=== PATIENT | female | born 1955 | race Caucasian/White ===

== ENCOUNTER 2016-09-09 11:52 | Inpatient (IN) | payer OTHER ==
--- NOTE | 2016-09-09 12:05 | PDOC ---
Attending Attestation - Resident Resident Name: DakshaWagner - ED Attending Attestation I have performed the following: I have examined & evaluated the patient, The case was reviewed & discussed with the resident, I agree w/resident's findings & plan, Exceptions are as noted - HPI HPI: 09/09/16 12:04 The patient is a 60-year-old female with a significant past medical history of ulcerative colitis, remote history of anemia (with high MCV and RDW, autoimmune per hematology) who presents to the emergency department with nausea, vomiting and abdominal pain. The abdominal pain is mainly in the bilateral lower quadrants, left greater than right. She reports a recent mild constipation. She denies diarrhea. She reports subjective fever, chills, sweats, myalgia, generalized weakness/fatigue. She recently returned from a trip to [place], where she spent time outdoors. She denies tick exposure or rash. She denies any new medications. She takes sulfasalazine for her ulcerative colitis. She has never been admitted to the hospital for her ulcerative colitis. She has never taken a biological agent. She cannot recall ever having a CAT scan for evaluation of her ulcerative colitis. 09/09/16 16:10 - Physicial Exam PE: 09/09/16 12:04 The patient is well-appearing and in no acute distress Vitals noted - Medical Decision Making 09/09/16 12:04 The patient is well-appearing and in no acute distress Will obtain labs, abdominal imaging with CT 09/09/16 13:38 Chemistries noted Her hypernatremia seems to be hypovolemic Will administer additional normal saline Elevated bilirubin is chronic Lactic acid is not elevated Urinalysis noted, contaminated Will repeat Initial white blood cell count is 0.6, according to the lab We will redraw 09/09/16 13:39 09/09/16 13:51 One blood cell count on second draw is 0.7 Differential is pending I suspect she will be neutropenic Differential pending She now has to SIRS criteria: Heart rate greater than 90, white blood cell count less than 4 We suspect intra-abdominal infection She meets diagnostic criteria for sepsis Will administer broad-spectrum antibiotics using Zosyn and vancomycin Will consult ID Regarding her leukopenia: Differential is pending She is slightly anemic but has a normal platelet count She denies tick exposure and rash Without a transaminitis or thrombocytopenia, I feel that tick borne illness secondary to an a pleasant doses is an unlikely cause of her leukopenia Sulfasalazine can rarely cause leukopenia It is possible that her abdominal symptoms as well as her leukopenia is viral Will consult hematology 09/09/16 15:03 I asked the lab to expedite the differential CT pending 09/09/16 15:53 Manual differential has been entered by the lab I called them to confirm that there were no neutrophils present She is now febrile Source is unknown Tick borne fever is in the differential Will administer a single dose of Doxycycline to cover Anaplasmosis Babesiosis much less likely 09/09/16 16:10 09/09/16 16:[address] Santos, who feels the neutropenia is likely autoimmune He suggests administration of neuopogen now at a dose of 480 SQ once 09/09/16 16:40 Case discussed with infectious disease Sulfasalizine mediated drug fever is a possibility Of note, she has no rash and does not have features of SJS or TEN. She also does not have features of DRESS Clinical impression: Neutropenic fever Possible drug reaction/drug fever Possible Sepsis Case discussed in detail with admitting provider including history, physical exam and ancillary studies. Admitting physician has assumed care for the patient, will follow all pending diagnostics and will complete the evaluation and treatment. 09/09/16 16:58
[2016-09-09] MEDS ORDERED: SODIUM CHLORIDE 1,000 ML IV STA ×2 (12:14→13:38)
[2016-09-09] MEDS ORDERED: ONDANSETRON 4 MG/2 ML VIAL IVPB ONE (12:16)
--- NOTE | 2016-09-09 12:58 | PDOC ---
History of Present Illness <Aneesh Bliss - Last Filed: 09/09/16 16:42> - History of Present Illness Initial Comments: 09/09/16 12:45 Patient is a 60 year old female with a history of well controlled Ulcerative Colitis and anemia who presents with 24 hour history of nausea and vomiting. She reports 6+ episodes of non-bloody, non-bilious vomiting over the last 24 hours. She reports that she hasn't been able to keep any solid food down prompting her visit urgent care earlier today. At urgent care they measured a temp of 101, gave her tylenol and sent her to the ED. In addition to the vomiting, she reports feeling very constipated, bloated as well as lower abdominal discomfort. She reports a bowel movement earlier today with significant straining. She denies any blood in her stool. In regards to her UC , she states that she hasn't had any flairs in over 6 years and has not taken any medication for it in over 6 yeas as well. She has never taken a biologic and has never had a CT scan for her UC. Patient reports a recent trip to [place] but denies any tick exposures. 09/09/16 14:09 09/09/16 14:15 09/09/16 14:57 <Wagner Crooks - Last Filed: 09/09/16 18:25> - General Chief Complaint: Nausea/Vomiting Stated Complaint: NAUSEA VOMITING Time Seen by Provider: 09/09/16 11:55 Past History <Aneesh Bliss - Last Filed: 09/09/16 16:42> - Past Medical History Anemia: Yes GI Disorders: Yes (COLITIS) - Psycho/Social/Smoking Cessation Hx Anxiety: No Suicidal Ideation: No Smoking History: Never smoked Have you smoked in the past 12 months: No Number of Cigarettes Smoked Daily: 0 Information on smoking cessation initiated: No Hx Alcohol Use: No Drug/Substance Use Hx: No Substance Use Type: None <Wagner Crooks - Last Filed: 09/09/16 18:25> - Past Medical History Allergies/Adverse Reactions: Allergies Allergy/AdvReac Type Severity Reaction Status Date / Time No Known Allergies Allergy Verified 09/09/16 13:57 Home Medications: Ambulatory Orders Sulfasalazine [Sulfazine] 4 tab PO DAILY 09/09/16 Review of Systems - Review of Systems Constitutional: Yes: Chills, Fever Respiratory: Yes: Cough. No: Shortness of Breath, Wheezing, Productive cough, Hemoptysis Cardiac (ROS): No: Chest Pain, Syncope, Chest Tightness ABD/GI: Yes: Constipated, Nausea, Vomiting, Abdominal cramping. No: Blood Streaked Bowels, Diarrhea, Rectal Bleeding, Tarry Stools : No: Burning, Dysuria, Discharge Musculoskeletal: No: Muscle Pain, Muscle Weakness Integumentary: No: Pallor, Rash Neurological: No: Headache, Dizziness All Other Systems: Reviewed and Negative <Wagner Crooks - Last Filed: 09/09/16 18:25> *Physical Exam - Vital Signs Last Vital Signs Temp Pulse Resp BP Pulse Ox 99.1 F 102 H 20 129/82 96 09/09/16 11:53 09/09/16 11:53 09/09/16 11:53 09/09/16 13:54 09/09/16 11:53 <Aneesh Bliss - Last Filed: 09/09/16 16:42> - Vital Signs Last Vital Signs Temp Pulse Resp BP Pulse Ox 99.1 F 102 H 20 129/82 96 09/09/16 11:53 09/09/16 11:53 09/09/16 11:53 09/09/16 11:53 09/09/16 11:53 - Physical Exam General Appearance: Yes: Nourished. No: Apparent Distress HEENT: negative: Pale Conjunctivae, Tonsillar Exudate, Tonsillar Erythema, Nasal Congestion, Rhinorrhea, Sinus Tenderness Respiratory/Chest: positive: Lungs Clear, Normal Breath Sounds. negative: Respiratory Distress, Rales, Rhonchi, Wheezing Cardiovascular: positive: Regular Rhythm, Tachycardia. negative: Murmur Gastrointestinal/Abdominal: positive: Normal Bowel Sounds, Soft, Tenderness ( Tenderness to deep palpation in the lower left quadrant. Tenderness to deep palaption in the upper left quadrant.). negative: Distended, Guarding, Rebound Musculoskeletal: negative: CVA Tenderness Extremity: positive: Normal Capillary Refill Integumentary: positive: Normal Color, Dry, Warm Neurologic: positive: Fully Oriented, Alert, Normal Mood/Affect, Normal Response <Wagner Crooks - Last Filed: 09/09/16 18:25> ED Treatment Course - LABORATORY CBC & Chemistry Diagram: 09/09/16 13:35 09/09/16 12:54 - ADDITIONAL ORDERS Additional order review: Laboratory Results 09/09/16 09/09/16 09/09/16 13:35 12:59 12:54 PTT (Actin FS) 29.5 Sodium Potassium Chloride Carbon Dioxide Anion Gap BUN Creatinine Creat Clearance w eGFR Random Glucose Lactic Acid Calcium Total Bilirubin AST ALT Alkaline Phosphatase Creatine Kinase 30 Troponin I < 0.03 L C-Reactive Protein Total Protein Albumin Urine Color Yellow Urine Appearance Clear Urine pH 7.0 Ur Specific [place] 1.020 Urine Protein 3+ H Urine Glucose (UA) Trace Urine Ketones 2+ H Urine Blood Negative Urine Nitrite Positive Urine Bilirubin 2+ H Urine Urobilinogen >=8.0 e.u./dl H Ur Leukocyte Esterase Negative Urine RBC 0-3 Urine WBC 0-3 Ur Epithelial Cells Moderate Urine Bacteria Many Hyaline Casts 3-5 09/09/16 09/09/16 12:54 12:54 PTT (Actin FS) Sodium 127 L Potassium 3.7 Chloride 96 L Carbon Dioxide 21 L Anion Gap 10 BUN 10 Creatinine 0.7 Creat Clearance w eGFR > 60 Random Glucose 131 H Lactic Acid 0.9 Calcium 9.0 Total Bilirubin 2.4 H AST 27 ALT 29 Alkaline Phosphatase 94 H Creatine Kinase Troponin I C-Reactive Protein 7.5 H Total Protein 8.0 Albumin 3.9 Urine Color Urine Appearance Urine pH Ur Specific [place] Urine Protein Urine Glucose (UA) Urine Ketones Urine Blood Urine Nitrite Urine Bilirubin Urine Urobilinogen Ur Leukocyte Esterase Urine RBC Urine WBC Ur Epithelial Cells Urine Bacteria Hyaline Casts 09/09/16 09/09/16 13:35 12:54 RBC 3.09 L Cancelled MCV 95.8 Cancelled MCHC 34.2 Cancelled RDW 12.8 Cancelled MPV 6.4 L Cancelled Neutrophils % Y Cancelled Lymphocytes % 84.0 H Cancelled Monocytes % 16.0 H Cancelled Eosinophils % Cancelled Basophils % Cancelled - RADIOLOGY Radiology Studies Ordered: Category Date Time Status CHEST X-RAY PORTABLE* [RAD] Stat Radiology 09/09/16 13:50 Completed - Medications Given in the ED: ED Medications Discontinued Medications Generic Name Dose Route Start Last Admin Trade Name Freq PRN Reason Stop Dose Admin Acetaminophen 975 mg 09/09/16 16:12 09/09/16 16:17 Tylenol - PO 09/09/16 16:13 975 mg ONCE ONE Administration Sodium Chloride 1,000 mls @ 1,000 mls/hr 09/09/16 12:14 09/09/16 13:00 Normal Saline - IV 09/09/16 13:13 1,000 mls/hr ASDIR STA Administration Sodium Chloride 1,000 mls @ 1,000 mls/hr 09/09/16 13:38 09/09/16 13:54 Normal Saline - IV 09/09/16 14:37 1,000 mls/hr ASDIR STA Administration Vancomycin HCl 1,000 mg/ 250 mls @ 250 mls/hr 09/09/16 13:49 09/09/16 15:05 Dextrose IVPB 09/09/16 14:48 250 mls/hr ONCE ONE Administration Protocol Ibuprofen 600 mg 09/09/16 15:53 09/09/16 16:16 Motrin - PO 09/09/16 15:54 Not Given ONCE ONE Ondansetron HCl 4 mg 09/09/16 12:16 09/09/16 13:00 Zofran Injection IVPB 09/09/16 12:17 4 mg ONCE ONE Administration Piperacillin Sod/Tazobactam Sod 4.5 gm 09/09/16 13:49 09/09/16 14:19 Zosyn 4.5gm Ivpb (Pre-Docked) IVPB 09/09/16 13:50 4.5 gm ONCE ONE Administration <Aneesh Bliss - Last Filed: 09/09/16 16:42> - LABORATORY CBC & Chemistry Diagram: 09/09/16 13:35 09/09/16 12:54 <Wagner Crooks - Last Filed: 09/09/16 18:25> Medical Decision Making - Medical Decision Making 09/09/16 13:06 The patient is a 60 year old female with a history of UC who presents with a 24 hour history of nausea, vomiting, and constipation. Patient is tachycardic on exam and given her reported home temps of over 101 she qualifies satisfies two of the SIRS criteria. We believe it is reasonable to rule out sepsis. It is also possible that she is having a flair of her UC or diverticulitis, however that is less likely given her presenting symptoms of constipation and vomiting. It is most likely that her symptoms are due to a viral illness, however we wish to rule out sepsis, UC flair, and diverticulitis as other possible causes. 09/09/16 14:02 Patient's chemistries were notable for a sodium of 127 leading us to believe that she is experiencing a hypovolemic hyponatremia. We believe that given her abnormal chemistry values, a CT abdomen with contrast is warrented at this time to rule out other abdominal processes. Patient also has an elevated biliruben which is chronic. 09/09/16 14:05 Patient noted to have a WBC count of 0.7 at this time on second blood draw. Patient now meets SIRS criteria with a WBC of 0.7 and tachycardia. Patient's neutrophil count is pending at this time. Given the patient's WBC of 0.7, we will start Vancomycin and Zosyn. Patient is on sulfazalazine which could possibly cause her leukopenia or some viral illness, however the etiology of her leukopenia is unclear at this time. UA was contaminated and will repeat. We will consult ID and Heme given her new leukopenia. 09/09/16 15:54 Patient's diff resulted with 0 Neutrophils. Lab was called to confirm. Doxycyline was added to cover for other tick borne diseases. 09/09/16 17:34 ID was consult and discussed the case. ID believes that the patient's current symptoms are unlikely to be related to an infectious etiology and is most likely due to a sulfazalazine reaction and recommend neutrogen. Heme was consulted and discussed the case. Heme also agrees that an infectious etiology is unlikely and believes that her reaction could be autoimmune. The patient has a history of autoimmune hemolytic anemia and Heme believes that her current neutropenia could be related. They also believe that a sulfazalazine reaction could be possible. Heme recommend giving neutrogen to the patient as well. 09/09/16 18:25 <Wagner Crooks - Last Filed: 09/09/16 18:25> *DC/Admit/Observation/Transfer - Discharge Dispostion Admit: Yes <Aneesh Bliss - Last Filed: 09/09/16 16:42> - Discharge Dispostion Admit: Yes <Wagner Crooks - Last Filed: 09/09/16 18:25> Diagnosis at time of Disposition: Neutropenic fever - Discharge Dispostion Condition at time of disposition: Stable
[2016-09-09 13:22] LABS: URINE APPEARANCE Clear; URINE BILIRUBIN 2+ (NEGATIVE); URINE BLOOD Negative (NEGATIVE); URINE GLUCOSE (UA) Trace (NEGATIVE); URINE KETONE 2+ (NEGATIVE); URINE LEUK ESTERASE Negative (NEGATIVE); URINE NITRITE Positive (NEGATIVE); URINE UROBILINOGEN >=8.0 E.U./dl (0.2-1.0)
[2016-09-09 13:24] LABS: URINE PROTEIN 3+ (NEGATIVE)
[2016-09-09 13:24] LABS: ALBUMIN 3.9 g/dl (3.5-5.0); ALK PHOS 94 U/L (32-92); ANION GAP 10 (8-16); BILIRUBIN,TOTAL 2.4 mg/dl (0.2-1.0); CO2 21 mmol/L (22-28); CREATININE 0.7 mg/dl (0.6-1.3); GLUCOSE,RANDOM 131 mg/dl (74-106); SGOT/AST 27 U/L (10-42); SGPT/ALT 29 U/L (10-40)
[2016-09-09 13:25] LABS: CPK(DFH) 30 IU/L (26-140)
[2016-09-09 13:25] LABS: URINE BACTERIA MANY /hpf (NEGATIVE); URINE COLOR YELLOW; URINE RBC 0-3 /hpf (0-3); URINE WBC 0-3 (3-5)
[2016-09-09 13:45] LABS: MCH 32.8 pg (25.7-33.7); MCHC 34.2 g/dl (32.0-36.0); MEAN CELL VOLUME 95.8 fl (80-96); MEAN PLT VOLUME 6.4 fl (7.5-11.1); PLATELET COUNT 260 K/MM3 (134-434); RDW 12.8 % (11.6-15.6)
[2016-09-09 13:48] LABS: WHITE BLOOD COUNT 0.7 K/mm3 (4.0-10.8)
[2016-09-09] MEDS ORDERED: PIPERACILLIN/TAZOB 4.5 GM/100 ML PRE-DOCKED IVPB ONE (13:49)
[2016-09-09] MEDS ORDERED: VANCOMYCIN 1,000 MG in DEXTROSE 5%-WATER - 250 ML IVPB ONE (13:49)
[2016-09-09] MEDS ORDERED: PIPERACILLIN/TAZOBACTAM 4.5 GM VIAL IVPB ONE (14:01)
[2016-09-09] MEDS ORDERED: VANCOMYCIN 1,000 MG VIAL (RESTRICTED TO ID ONLY) ONE (14:01)
[2016-09-09 14:23] LABS: TROPONIN I (DFP) < 0.03 ng/ml (0.03-0.50)
[2016-09-09 14:27] LABS: C-REACTIVE PROTEIN 7.5 MG/DL (0.00-0.3)
[2016-09-09] MEDS ORDERED: ONDANSETRON 4 MG/2 ML VIAL ONE (14:38)
[2016-09-09 15:38] LABS: PLATELET COMMENT2 RARE GIANT PLTS
[2016-09-09] MEDS ORDERED: IBUPROFEN 600 MG TABLET (FP) PO ONE ×3 (15:53→19:32)
[2016-09-09] MEDS ORDERED: DOXYCYCLINE INJECTION 100 MG in DEXTROSE 5%-WATER - 100 ML IVPB ONE (15:56)
[2016-09-09] MEDS ORDERED: ACETAMINOPHEN 325 MG TABLET (FP) PO ONE (16:12)
[2016-09-09] MEDS ORDERED: ACETAMINOPHEN 325 MG TABLET (FP) ONE (16:14)
[2016-09-09 16:51] LABS: ACTIVATED PTT 29.9 SECONDS (24.0-38.9)
[2016-09-09 16:56] LABS: INR 1.16 (0.82-1.09); PROTHROMBIN TIME (PATIENT) 12.9 SEC (10.2-13.0)
[2016-09-09] MEDS ORDERED: TBO-FILGRASTIM 480 MCG/0.8 ML DISP.SYRIN SQ ONE (16:57)
[2016-09-09] MEDS ORDERED: DOXYCYCLINE HYCLATE 100 MG VIAL ONE (16:59)
[2016-09-09] MEDS ORDERED: ONDANSETRON 4 MG/2 ML VIAL IVPUSH PRN (17:07)
[2016-09-09] MEDS ORDERED: SODIUM CHLORIDE 1,000 ML IV SCH (17:15)
--- NOTE | 2016-09-09 17:51 | PN ---
Progress Note, Physician Chief Complaint: ID 60 year old female long history if ulcerative colitis followed most recently at [place] brought with complaints of fever nausea vomiting chills. Noted to be profoundly neutropenic. Patient says about a month ago she was started on sulfasalazine in escalating dosage. Denies rash mouth soreness SOB Mild abd pain no diarrhea. Only travel to [place] recent no tick bite by recall. No drug or alcohol abuse. - Current Medication List Current Medications: Active Medications Acetaminophen (Tylenol -) 650 mg PO Q4H PRN PRN Reason: FEVER Piperacillin Sod/Tazobactam (Sod 3.375 gm/ Dextrose) 50 mls @ 100 mls/hr IVPB ONCE ONE PRN Reason: Protocol Stop: 09/09/16 22:29 Sodium Chloride (Normal Saline -) 1,000 mls @ 75 mls/hr IV ASDIR [place] Ondansetron HCl (Zofran Injection) 4 mg IVPUSH Q4H PRN PRN Reason: NAUSEA - Objective Vital Signs: Vital Signs Temperature 101.7 F H 09/09/16 16:00 Pulse Rate 102 H 09/09/16 12:14 Respiratory Rate 20 09/09/16 16:00 Blood Pressure 129/82 09/09/16 13:54 O2 Sat by Pulse Oximetry (%) 96 09/09/16 16:00 Constitutional: Yes: Well Nourished, No Distress Eyes: Yes: Conjunctiva Clear HENT: Yes: WNL, Atraumatic, Normocephalic. No: Nasal Congestion, Pharyngeal Erythema, Thrush Neck: Yes: WNL, Supple Cardiovascular: Yes: Regular Rate and Rhythm, S1, S2. No: Murmur Respiratory: Yes: WNL, Regular, CTA Bilaterally Gastrointestinal: Yes: WNL, Normal Bowel Sounds, Soft. No: Tenderness, Tenderness, Epigastrium Edema: No Labs: INR, PTT INR 1.16 (0.82-1.09) 09/09/16 12:54 Problem List - Problems (1) Neutropenic fever Code(s): D70.9 - NEUTROPENIA, UNSPECIFIED R50.81 - FEVER PRESENTING WITH CONDITIONS CLASSIFIED ELSEWHERE (2) Sulfasalazine adverse reaction Code(s): T37.0X5A - ADVERSE EFFECT OF SULFONAMIDES, INITIAL ENCOUNTER (3) Ulcerative colitis Code(s): K51.90 - ULCERATIVE COLITIS, UNSPECIFIED, WITHOUT COMPLICATIONS Assessment/Plan Laboratory Tests 09/09/16 09/09/16 09/09/16 12:54 12:54 12:59 WBC Hgb Hct RDW Lymphocytes % Monocytes % Nucleated RBCs BUN 10 Creatinine 0.7 Creat Clearance w eGFR > 60 Random Glucose 131 H Lactic Acid 0.9 Total Bilirubin 2.4 H AST 27 ALT 29 Alkaline Phosphatase 94 H C-Reactive Protein 7.5 H Ur Leukocyte Esterase Negative Urine RBC 0-3 Urine WBC 0-3 09/09/16 13:35 WBC 0.7 L* Hgb 10.1 L Hct 29.6 L RDW 12.8 Lymphocytes % 84.0 H Monocytes % 16.0 H Nucleated RBCs 1 H BUN Creatinine Creat Clearance w eGFR Random Glucose Lactic Acid Total Bilirubin AST ALT Alkaline Phosphatase C-Reactive Protein Ur Leukocyte Esterase Urine RBC Urine WBC Assessment Neutropenic fever 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 Plan Cultures Neutropenic precautions Cefepime 2grs q 8 H Neupogen 480ug sq now Heme consult [place] [facility]
[2016-09-09 18:59] VITALS: BMI 26.8
--- NOTE | 2016-09-09 20:53 | HP ---
CHIEF COMPLAINT: fever, vomiting PCP: @ [facility] HISTORY OF PRESENT ILLNESS: This is a 60 year old female with a past medical history of ulcerative colitis and hemolytic anemia presented to the ED with a 1-2 day history of fever and vomiting. Initially pt reported constipation but now states she is having LBM. Pt denies chest pain, SOB. Pt staes she was started on sulfasalazine approximately one month ago in escalating dosage. ER course was notable for: (1) WBC 0.7, neutrophil count 0 (2) Sodium 127 (3) CRP 7.5, Lactic Acid 0.9 Recent Travel: [place]-denies known tick exposure-did not really do a lot of outdoor activities PAST MEDICAL HISTORY: Ulcerative colitis hemolytic anemia s/p hospitalization 2010, followed by Dr. Santos PAST SURGICAL HISTORY: pt denies Social History: Smoking: pt denies Alcohol: 1-2 glasses wine/night Drugs: pt denies Family History: mother age 94, UTI/dementia father age 84, OR 2 brothers alive and well no children Allergies No Known Allergies Allergy (Verified 09/09/16 13:57) HOME MEDICATIONS: 3 Medication Instructions Recorded Sulfasalazine [Sulfazine] 4 tab PO DAILY 09/09/16 REVIEW OF SYSTEMS CONSTITUTIONAL: Present: fever, chills Absent: diaphoresis, generalized weakness, malaise, loss of appetite, weight change HEENT: Absent: rhinorrhea, nasal congestion, throat pain, throat swelling, difficulty swallowing, mouth swelling, ear pain, eye pain, visual changes CARDIOVASCULAR: Absent: chest pain, syncope, palpitations, irregular heart rate, lightheadedness , peripheral edema RESPIRATORY: Absent: cough, shortness of breath, dyspnea with exertion, orthopnea, wheezing, stridor, hemoptysis GASTROINTESTINAL: Present: nausea, vomiting, constipation Absent: abdominal pain, abdominal distension, diarrhea, melena, hematochezia GENITOURINARY: Absent: dysuria, frequency, urgency, hesitancy, hematuria, flank pain, genital pain MUSCULOSKELETAL: Absent: myalgia, arthralgia, joint swelling, back pain, neck pain SKIN: Absent: rash, itching, pallor HEMATOLOGIC/IMMUNOLOGIC: Absent: easy bleeding, easy bruising, lymphadenopathy, frequent infections ENDOCRINE: Absent: unexplained weight gain, unexplained weight loss, heat intolerance, cold intolerance NEUROLOGIC: Absent: headache, focal weakness or paresthesias, dizziness, unsteady gait, seizure, mental status changes, bladder or bowel incontinence PSYCHIATRIC: Absent: anxiety, depression, suicidal or homicidal ideation, hallucinations. PHYSICAL EXAMINATION Vital Signs - 24 hr 3 09/09/16 09/09/16 09/09/16 11:53 12:14 13:00 Temperature 99.1 F 99.1 F Pulse Rate 102 H 102 H Respiratory 20 20 Rate Blood Pressure 129/82 129/82 129/82 O2 Sat by Pulse 96 96 Oximetry (%) 3 09/09/16 09/09/16 09/09/16 09/09/16 09/09/16 13:54 16:00 17:33 19:21 19:33 Temperature 101.7 F H 99 F 99.8 F H 104 F H Pulse Rate 78 97 H Respiratory 20 20 19 Rate Blood Pressure 129/82 132/78 130/67 O2 Sat by Pulse 96 98 Oximetry (%) GENERAL: Awake, alert, and fully oriented, in no acute distress. HEAD: Normal with no signs of trauma. EYES: Pupils equal, round and reactive to light, extraocular movements intact, sclera anicteric, conjunctiva clear. No lid lag. EARS, NOSE, THROAT: Ears normal, nares patent, oropharynx clear without exudates. Moist mucous membranes. NECK: Normal range of motion, supple without lymphadenopathy, JVD, or masses. LUNGS: Breath sounds equal, clear to auscultation bilaterally. No wheezes, and no crackles. No accessory muscle use. HEART: Regular rate and rhythm, normal S1 and S2 without murmur, rub or gallop. ABDOMEN: Soft, nontender, not distended, normoactive bowel sounds, no guarding, no rebound, no masses. No hepatomegaly or splenomegaly. MUSCULOSKELETAL: Normal range of motion at all joints. No bony deformities or tenderness. No CVA tenderness. UPPER EXTREMITIES: 2+ pulses, warm, well-perfused. No cyanosis. No clubbing. No peripheral edema. LOWER EXTREMITIES: 2+ pulses, warm, well-perfused. No calf tenderness. No peripheral edema. NEUROLOGICAL: Cranial nerves II-XII intact. Normal speech. Normal gait. PSYCHIATRIC: Cooperative. Good eye contact. Appropriate mood and affect. SKIN: Hot, dry, normal turgor, no rashes or lesions noted, normal capillary refill. Laboratory Results - last 24 hr 3 09/09/16 09/09/1609/09/17 12:54 12:54 12:54 WBC Cancelled Corrected WBC (auto) Cancelled RBC Cancelled Hgb Cancelled Hct Cancelled MCV Cancelled MCHC Cancelled RDW Cancelled Plt Count Cancelled MPV Cancelled Neutrophils % Cancelled Lymphocytes % Cancelled Monocytes % Cancelled Eosinophils % Cancelled Basophils % Cancelled Nucleated RBCs Differential Comment Cancelled Smudge Cells Cancelled Platelet Estimate Cancelled Platelet Comment Cancelled RBC Morphology Cancelled INR 1.16 PTT (Actin FS) 29.9 Sodium 127 L Potassium 3.7 Chloride 96 L Carbon Dioxide 21 L Anion Gap 10 BUN 10 Creatinine 0.7 Creat Clearance w eGFR > 60 Random Glucose 131 H Lactic Acid 0.9 Calcium 9.0 Total Bilirubin 2.4 H AST 27 ALT 29 Alkaline Phosphatase 94 H Creatine Kinase 30 Troponin I < 0.03 L C-Reactive Protein 7.5 H Total Protein 8.0 Albumin 3.9 Urine Color Urine Appearance Urine pH Ur Specific [place] Urine Protein Urine Glucose (UA) Urine Ketones Urine Blood Urine Nitrite Urine Bilirubin Urine Urobilinogen Ur Leukocyte Esterase Urine RBC Urine WBC Ur Epithelial Cells Urine Bacteria Hyaline Casts 3 Urine Color Yellow 09/09/16 12:59 Urine Appearance Clear 09/09/16 12:59 Urine pH 7.0 (4.5-8) 09/09/16 12:59 Ur Specific [place] 1.020 (1.005-1.025) 09/09/16 12:59 Urine Protein 3+ (NEGATIVE) H 09/09/16 12:59 Urine Glucose (UA) Trace (NEGATIVE) 09/09/16 12:59 Urine Ketones 2+ (NEGATIVE) H 09/09/16 12:59 Urine Blood Negative (NEGATIVE) 09/09/16 12:59 Urine Nitrite Positive (NEGATIVE) 09/09/16 12:59 Urine Bilirubin 2+ (NEGATIVE) H 09/09/16 12:59 Ur Leukocyte Esterase Negative (NEGATIVE) 09/09/16 12:59 Urine RBC 0-3 /hpf (0-3) 09/09/16 12:59 Urine WBC 0-3 (3-5) 09/09/16 12:59 Ur Epithelial Cells Moderate /HPF 09/09/16 12:59 Urine Bacteria Many /hpf (NEGATIVE) 09/09/16 12:59 3 09/09/16 09/09/16 13:35 13:35 WBC 0.7 L* Corrected WBC (auto) RBC 3.09 L Hgb 10.1 L Hct 29.6 L MCV 95.8 MCHC 34.2 RDW 12.8 Plt Count 260 MPV 6.4 L Neutrophils % Y Lymphocytes % 84.0 H Monocytes % 16.0 H Eosinophils % Basophils % Nucleated RBCs 1 H Differential Comment Smudge Cells Platelet Estimate Platelet Comment Rare giant plts RBC Morphology INR PTT (Actin FS) 29.5 Sodium Potassium Chloride Carbon Dioxide Anion Gap BUN Creatinine Creat Clearance w eGFR Random Glucose Lactic Acid Calcium Total Bilirubin AST ALT Alkaline Phosphatase Creatine Kinase Troponin I C-Reactive Protein Total Protein Albumin Urine Color Urine Appearance Urine pH Ur Specific [place] Urine Protein Urine Glucose (UA) Urine Ketones Urine Blood Urine Nitrite Urine Bilirubin Urine Urobilinogen Ur Leukocyte Esterase Urine RBC Urine WBC Ur Epithelial Cells Urine Bacteria Hyaline Casts Radiology Results CT/ABDOMEN PELVIS CT WITH CONTR Abdomen / pelvis CT (with intravenous and oral contrast) Clinical information: history of ulcerative colitis; now with left lower quadrant pain Multiplanar imaging was performed utilizing intravenous and oral contrast. There is no definite CT evidence of current colitis. Mild to moderate colitis may not be demonstrable on CT. Evaluation of the ascending colon and cecum is limited due to respiratory motion artifact. In comparison to a previous CT exam of 04/27/2010 note is made of apparent interval resolution of concentric wall thickening involving the length of the transverse colon. No evidence of pneumoperitoneum, free intraperitoneal fluid or bowel obstruction. There is no CT evidence of acute diverticulitis or appendicitis. Interval development of minimal to mild splenomegaly is noted with a 13 cm length. Patent splenic vein. There is probable diffuse fatty infiltration of the liver. The pancreas, gallbladder, adrenal glands and kidneys demonstrate no discrete abnormality. No aortic aneurysm. There is no gross small bowel pathology. No definite lymphadenopathy is seen. There has been interval resolution of a 2.4 cm left ovarian cyst. No definite pelvic pathology is visualized. The visualized osseous structures demonstrate no obvious acute pathology. impression: No definite CT findings of acute pathology are identified. Minimal to mild splenomegaly. Probable diffuse hepatic steatosis. Reported By: Vick Barnes MD 09/09/16 7629 CHEST X-RAY PORTABLE* Fever. Single AP chest x-ray. Shallow inspiration. No evidence of pneumonia, CHF, atelectasis or pleural effusion. The heart is borderline enlarged. Uncoiled thoracic aorta. Intact visualized osseous structures. Impression. No evidence of active pulmonary disease. Reported By: Praneeth Mchugh MD 09/09/16 1412 ECG Sinus rhythm with short MI, vent rate 97, MI 110, QTC 444, No acute ST/T changes ASSESSMENT/PLAN: 60yF with PMH ulcerative colitis and anemia presented to the ED with fever, nausea and vomiting. She is being admitted for neutropenic fever. Neutropenic fever - meets sepsis criteria but no clear source, CT without obvious abdominal pathology - cont cefepime 2g q8h per ID - neupogen as ordered - likely Drug reaction - ID and heme consults Hyponatremia - likely hypovolemic given recent vomiting. - cont IVF - repeat sodium 10pm ulcerative colitis - dc sulfazine, monitor for acute exacerbation. anemia - Hgb 10, cont to monitor - heme consult DVT PPX - heparin 5000u SC BID FEN - NS @ 75cc/hr - repeat BMP 10pm - clear liquid diet as tolerated Dispo: Pt currently requires inpatient management of her emergent condition and expected LOS is greater than 2 midnights. Visit type - Emergency Visit Emergency Visit: Yes ED Registration Date: 09/09/16 Care time: The patient presented to the Emergency Department on the above date and was hospitalized for further evaluation of their emergent condition. - New Patient This patient is new to me today: Yes Date on this admission: 09/09/16 - Critical Care Critical Care patient: No
[2016-09-09] MEDS: ACETAMINOPHEN 325 MG TABLET (FP) PO PRN (21:50)
[2016-09-09] MEDS ORDERED: HEPARIN NA (PORCINE) 5,000 UNITS/ML 1ML VIAL SQ SCH (22:00)
[2016-09-09] MEDS ORDERED: PIPERACILLIN/TAZOB 3.375 GM 3.375 GM in DEXTROSE 5%-WATER - 50 ML IVPB ONE (22:00)
[2016-09-09 22:46] LABS: PH,URINE 5.5 (4.5-8); URINE APPEARANCE Clear; URINE BILIRUBIN Negative (NEGATIVE); URINE BLOOD Trace-lysed (NEGATIVE); URINE COLOR YELLOW; URINE GLUCOSE (UA) Negative (NEGATIVE); URINE KETONE Negative (NEGATIVE); URINE LEUK ESTERASE Negative (NEGATIVE); URINE NITRITE Negative (NEGATIVE); URINE PROTEIN 1+ (NEGATIVE); URINE UROBILINOGEN 2.0 E.U/dl (0.2-1.0)
[2016-09-09 22:57] LABS: URINE BACTERIA FEW /hpf (NEGATIVE); URINE WBC 0-2 (3-5)
[2016-09-09 23:00] LABS: ANION GAP 9 (8-16); CALCIUM 8.1 mg/dl (8.4-10.2); CO2 21 mmol/L (22-28); CREATININE 0.7 mg/dl (0.6-1.3); GLUCOSE,RANDOM 146 mg/dl (74-106)
[2016-09-09] MEDS ORDERED: POTASSIUM CHLORIDE ORAL LIQUID 20 MEQ/15 ML PO ONE (23:28)
--- NOTE | 2016-09-10 01:23 | CONS ---
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 She had not been feeling well for the preceding week noting that she had felt generalized malaise and weak. History is significant for longstanding ulcerative colitis which has been followed by Dr. Hale locally, most recently with a second opinion at [facility] by a intelligence applications there. She had a recent colonoscopy which according to the patient had "multiple polyps", and the decision was made to start the patient on sulfasalazine. She did not have any abdominal pain, cramping, or diarrhea. She has been on sulfasalazine only for about a month; during this time, she has been on an escalating dosage regimen. She went to [place] this past week for a vacation noting only that she felt weak there but had no other complaints. Upon her return, she began to feel ill 2 days ago with several episodes of vomiting associated with chills and fever, which brought her to the emergency room today. Of note, on arrival here, her white count was noted to be 0.7, the hemoglobin was 10.1, and the platelets 260. She had no neutrophils. Her chemistry profile was essentially within normal limits with the exception of a bilaterally of 2.4. She has no shortness of breath, cough, abdominal pain, urinary complaints, rash, or mouth soreness. She lives with her also a teacher, and he noted a fever yesterday to 101 but no other complaints. She has no other history of travel other than to [place]. There is no HIV risk factor, does not drink or use drugs, and essentially the remainder of her history is unremarkable. PHYSICAL EXAMINATION: General: She appeared remarkably well given a temperature of 101.7F. Vital signs: Blood pressure 129/82, respirations 20, O2 saturation 96%. HEENT: Conjunctivae within normal limits. The oropharynx without exudate, thrush, or mucous membrane ulceration. Neck: Supple with no lymphadenopathy. Lungs: Clear to percussion, auscultation. Heart: S1, S2. Regular rhythm without audible murmur. Abdomen: Soft. Nontender. Positive bowel sounds. No distention. No guarding, rebound. No palpable mass. Extremities: No clubbing, cyanosis, or edema. Skin: Revealed a punctate papular rash on her back. LABORATORY: The white count was 0.1 with a hemoglobin 10.1 and platelets of 260, 84% polycytes, 16% monocytes. INR 1.16, BUN 10, creatinine 0.7, bilirubin 2.4. Urinalysis: 0 WBCs, 0 RBCs, many bacteria noted. Chest x-ray with no acute infiltrate. Abdominal CT scan showing minimal to mild splenomegaly. ASSESSMENT: A 60-year-old female with history of ulcerative colitis, presents with febrile, neutropenic findings with profound neutropenia in the absence of severe anemia or thrombocytopenia. She does have an elevated bilirubin, and the possibility of hemolysis is considered. More likely, however, all of her findings included this isolated neutropenia and fever are related to a sulfasalazine reaction which is well described with this drug. She is remarkably well appearing given the profound neutropenia and fever . That leads me to believe we may not be dealing with a bacterial sepsis. Certainly however she needs to be empirically covered with antibacterial treatment. Would suggest cultures of blood and urine, empiric therapy with cefepime 2 g IV every 8 hours, will give her Neupogen 480 mcg subcutaneous as a first dose, have hematology evaluate her, discontinue sulfasalazine!, send a babesiosis smear as well as LDH and reticulocyte count for possible hemolysis. RAMIRO BELLA M.D. [id number]
--- NOTE | 2016-09-10 08:24 | PN ---
Physical Exam: SUBJECTIVE: Patient seen and examined, patient reports feeling much better, denies any nausea or vomiting, pt spiked fever on the overnight tmax 104.0 OBJECTIVE: patient is a 60 year old female with a past medical history of ulcerative colitis and autoimmune hemolytic anemia. Patient was admitted from the emergency department for profound neutropenia and sepsis. PCP: Dr Roberts Heme: Dr Santos GI: [place] Vital Signs Period Temp Pulse Resp BP Sys/Pizarro Pulse Ox Last 24 Hr 98.3 F-104 F 78-97 18-19 105-130/59-67 96-98 GENERAL: The patient is awake, alert, and fully oriented, in no acute distress. HEAD: Normal with no signs of trauma. EYES: PERRL, extraocular movements intact, sclera anicteric, conjunctiva clear. No ptosis. ENT: Ears normal, nares patent, oropharynx clear without exudates, dry mucous membranes. NECK: Trachea midline, full range of motion, supple. LUNGS: Breath sounds equal, clear to auscultation bilaterally, no wheezes, no crackles, no accessory muscle use. HEART: Regular rate and rhythm, S1, S2 without murmur, rub or gallop. ABDOMEN: Soft, nontender, nondistended, normoactive bowel sounds, no guarding, no rebound, no hepatosplenomegaly, no masses. RECTAL: external hemorrhoids. non thrombosed EXTREMITIES: 2+ pulses, warm, well-perfused, no edema. NEUROLOGICAL: Cranial nerves II through XII grossly intact. Normal speech, gait not observed. PSYCH: Normal mood, normal affect. SKIN: Warm, dry, normal turgor, no rashes or lesions noted Laboratory Results - last 24 hr 09/09/16 09/09/16 09/09/16 18:37 22:12 22:15 Sodium 130 L Potassium 3.2 L Chloride 100 Carbon Dioxide 21 L Anion Gap 9 BUN 11 Creatinine 0.7 Random Glucose 146 H Calcium 8.1 L C-Reactive Protein 10.2 H D Urine Color Yellow Urine Appearance Clear Urine pH 5.5 D Ur Specific [place] 1.010 Urine Protein 1+ H D Urine Glucose (UA) Negative Urine Ketones Negative Urine Blood Trace-lysed Urine Nitrite Negative Urine Bilirubin Negative Urine Urobilinogen 2.0 e.u/dl H Ur Leukocyte Esterase Negative Urine RBC 2-3 Urine WBC 0-2 Ur Epithelial Cells Rare Urine Bacteria Few CBC WBC 0.7 K/mm3 (4.0-10.8) L* 09/09/16 13:35 Corrected WBC (auto) Cancelled 09/09/16 12:54 RBC 3.09 M/mm3 (3.60-5.2) L 09/09/16 13:35 Hgb 10.1 GM/dl (10.7-15.3) L 09/09/16 13:35 Hct 29.6 % (32.4-45.2) L 09/09/16 13:35 MCV 95.8 fl (80-96) 09/09/16 13:35 MCHC 34.2 g/dl (32.0-36.0) 09/09/16 13:35 RDW 12.8 % (11.6-15.6) 09/09/16 13:35 Plt Count 260 K/MM3 (134-434) 09/09/16 13:35 MPV 6.4 fl (7.5-11.1) L 09/09/16 13:35 Neutrophils % Y 09/09/16 13:35 Lymphocytes % 84.0 % (8-40) H 09/09/16 13:35 Monocytes % 16.0 % (3.8-10.2) H 09/09/16 13:35 Eosinophils % Cancelled 09/09/16 12:54 Basophils % Cancelled 09/09/16 12:54 Nucleated RBCs 1 % (0-0) H 09/09/16 13:35 Differential Comment Cancelled 09/09/16 12:54 Smudge Cells Cancelled 09/09/16 12:54 Platelet Estimate Cancelled 09/09/16 12:54 Platelet Comment Few large plts 09/09/16 13:35 Platelet Comment Rare giant plts 09/09/16 13:35 RBC Morphology Cancelled 09/09/16 12:54 Active Medications Generic Name Dose Route Start Last Admin Trade Name Freq PRN Reason Stop Dose Admin Acetaminophen 650 mg 09/09/16 17:10 09/09/16 21:50 Tylenol - PO 650 mg Q4H PRN Administration FEVER Cefepime HCl 2 gm 09/09/16 18:00 09/10/16 01:20 Maxipime 2gm Ivpb (Pre-Docked) IVPB 2 gm Q8H-IV SPRING Administration Protocol Heparin Sodium (Porcine) 5,000 unit 09/09/16 22:00 09/09/16 21:49 Heparin - SQ 5,000 unit BID [place] Administration Sodium Chloride 1,000 mls @ 75 mls/hr 09/09/16 17:15 09/09/16 19:52 Normal Saline - IV 75 mls/hr ASDIR [place] Administration Lactobacillus Acidophilus 1 tab 09/10/16 10:00 Bacid - PO DAILY [place] Ondansetron HCl 4 mg 09/09/16 17:07 Zofran Injection IVPUSH Q4H PRN NAUSEA Radiology Results CT/ABDOMEN PELVIS CT WITH CONTR Abdomen / pelvis CT (with intravenous and oral contrast) Clinical information: history of ulcerative colitis; now with left lower quadrant pain Multiplanar imaging was performed utilizing intravenous and oral contrast. There is no definite CT evidence of current colitis. Mild to moderate colitis may not be demonstrable on CT. Evaluation of the ascending colon and cecum is limited due to respiratory motion artifact. In comparison to a previous CT exam of 04/27/2010 note is made of apparent interval resolution of concentric wall thickening involving the length of the transverse colon. No evidence of pneumoperitoneum, free intraperitoneal fluid or bowel obstruction. There is no CT evidence of acute diverticulitis or appendicitis. Interval development of minimal to mild splenomegaly is noted with a 13 cm length. Patent splenic vein. There is probable diffuse fatty infiltration of the liver. The pancreas, gallbladder, adrenal glands and kidneys demonstrate no discrete abnormality. No aortic aneurysm. There is no gross small bowel pathology. No definite lymphadenopathy is seen. There has been interval resolution of a 2.4 cm left ovarian cyst. No definite pelvic pathology is visualized. The visualized osseous structures demonstrate no obvious acute pathology. impression: No definite CT findings of acute pathology are identified. Minimal to mild splenomegaly. Probable diffuse hepatic steatosis. Reported By: Vick Barnes MD 09/09/16 1639 CHEST X-RAY PORTABLE* Fever. Single AP chest x-ray. Shallow inspiration. No evidence of pneumonia, CHF, atelectasis or pleural effusion. The heart is borderline enlarged. Uncoiled thoracic aorta. Intact visualized osseous structures. Impression. No evidence of active pulmonary disease. Reported By: Praneeth Mchugh MD 09/09/16 1412 ECG Sinus rhythm with short ND, vent rate 97, ND 110, QTC 444, No acute ST/T changes ASSESSMENT/PLAN: 1) ID Neutropenic fever - patient meets sepsis critera, however, fever likely secondary to autoimmune disease vs drug reaction (sulfazine), f/u blood and urine culture - continue cefepime 2gm TID-->ID consulted and following ([facility]) neutropenia - wbc 0.7, likely secondary to sulfazine - neupogen given yesterday 09/09/16, close monitoring, pending AM labs hemolytic autoimmune anemia - hgb 10.1 mcv 95.8, close monitoring, pending am labs, type and screen ordered - pt may require iv steroids will defer to upper extremity surgeon, appreciate the input of Dr Fields, pt's private upper extremity surgeon 2) GI ulcerative colitis - d/c sulfazine, continue to monitor for acute exacerbation 3) F/E/N Hyponatremia - likely secondary to hypovolemic, continue IV hydration, pending AM labs neutropenic diet DVT PPX - defer ac due to anemia, pt is ambulatory throughout nurse's station - scd Dispo: Pt currently requires inpatient management of her emergent condition and expected LOS is greater than 2 midnights. Visit type - Emergency Visit Emergency Visit: Yes ED Registration Date: 09/09/16 Care time: The patient presented to the Emergency Department on the above date and was hospitalized for further evaluation of their emergent condition. - New Patient This patient is new to me today: No - Critical Care Critical Care patient: No - Discharge Referral Referred to [facility] No
[2016-09-10 08:56] LABS: ANION GAP 7 (8-16); CALCIUM 8.2 mg/dl (8.4-10.2); CO2 21 mmol/L (22-28); CREATININE 0.6 mg/dl (0.6-1.3); GLUCOSE,RANDOM 106 mg/dl (74-106); LDH 131 U/L (91-180); MAGNESIUM 1.6 mg/dL (1.8-2.4); PHOSPHOROUS 3.2 mg/dl (2.5-4.6)
[2016-09-10] MEDS: RANITIDINE HCL 150 MG TABLET (FP) PO SCH ×2 (09:14→21:27)
[2016-09-10] MEDS: LACTOBACILLUS ACIDOPHILUS 1 EACH TAB (FP) PO SCH (09:14)
[2016-09-10] MEDS: HYDROCORTISONE 2.5% TOPICAL CREAM 30 GM TUBE PR SCH (09:14)
[2016-09-10] MEDS: D5-NS + 20 MEQ KCL - 1,000 ML IV SCH (09:15)
--- NOTE | 2016-09-10 09:21 | PN ---
Progress Note, Physician History of Present Illness: Awake, alert No complaints Temps down Afebrile WBC pending Cultures prelim no growth - Current Medication List Current Medications: Active Medications Acetaminophen (Tylenol -) 650 mg PO Q4H PRN PRN Reason: FEVER Last Admin: 09/09/16 21:50 Dose: 650 mg Cefepime HCl (Maxipime 2gm Ivpb (Pre-Docked)) 2 gm IVPB Q8H-IV SPR[place] PRN Reason: Protocol Last Admin: 09/10/16 01:20 Dose: 2 gm Hydrocortisone (Anusol 2.5% Hc Cream -) 1 applic TN DAILY [place] Last Admin: 09/10/16 09:14 Dose: 1 applic Dextrose/Sodium Chloride (Dextrose 5%-Normal Saline+20 Meq Kcl -) 1,000 mls @ 75 mls/hr IV ASDIR [facility] Last Admin: 09/10/16 09:15 Dose: 75 mls/hr Lactobacillus Acidophilus (Bacid -) 1 tab PO DAILY [facility] Last Admin: 09/10/16 09:14 Dose: 1 tab Ondansetron HCl (Zofran Injection) 4 mg IVPUSH Q4H PRN PRN Reason: NAUSEA Ranitidine HCl (Zantac -) 150 mg PO BID [facility] Last Admin: 09/10/16 09:14 Dose: 150 mg - Objective Vital Signs: Vital Signs Temperature 98.3 F 09/10/16 04:00 Pulse Rate 78 09/10/16 04:00 Respiratory Rate 19 09/10/16 08:02 Blood Pressure 105/62 09/10/16 04:00 O2 Sat by Pulse Oximetry (%) 96 09/10/16 08:02 Constitutional: Yes: No Distress Eyes: Yes: Conjunctiva Clear Cardiovascular: Yes: Regular Rate and Rhythm, S1, S2 Respiratory: Yes: CTA Bilaterally Gastrointestinal: Yes: Normal Bowel Sounds, Soft. No: Tenderness Edema: No Integumentary: No: Rash Labs: CBC, BMP 09/10/16 07:30 INR, PTT INR 1.16 (0.82-1.09) 09/09/16 12:54 Assessment/Plan Febrile neutropenia Possible adverse drug reaction (sulfa) Ulcerative colitis Await cultures, repeat CBC Continue empiric cefepime
[2016-09-10] MEDS ORDERED: MAGNESIUM SULF 50% (8.12 MEQ/2 ML-1 GM VIAL) IVPB ONE (09:30)
[2016-09-10 09:38] LABS: MEAN PLT VOLUME 7.8 fl (7.5-11.1)
[2016-09-10 09:40] LABS: EOSINOPHIL 0.4 % (0-4.5); MCH 33.6 pg (25.7-33.7); MCHC 34.9 g/dl (32.0-36.0); MEAN CELL VOLUME 96.3 fl (80-96); RDW 12.8 % (11.6-15.6); WHITE BLOOD COUNT 0.8 K/mm3 (4.0-10.8)
[2016-09-10 11:03] LABS: PLATELET COUNT 150 K/MM3 (134-434)
--- NOTE | 2016-09-10 11:36 | CONSULT ---
Consult - History of Present Illness History of Present Illness: hx of ulcerative colitis with moderate activity who switched MDs was placed on sulfaalazine with increasing doses . started feeling nausea several days ago AND came to ER .noted to be markedlly neutropenic and admitted .placed on antibiotics and feels better. 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 has been off steroids for several years. - Alcohol/Substance Use Hx Alcohol Use: No - Smoking History Smoking history: Never smoked Have you smoked in the past 12 months: No Aproximately how many cigarettes per day: 0 Home Medications - Allergies Allergies/Adverse Reactions: Allergies Allergy/AdvReac Type Severity Reaction Status Date / Time No Known Allergies Allergy Verified 09/09/16 13:57 - Home Medications Home Medications: Ambulatory Orders Sulfasalazine [Sulfazine] 4 tab PO DAILY 09/09/16 Physical Exam Vital Signs: Vital Signs Temperature 98.3 F 09/10/16 04:00 Pulse Rate 78 09/10/16 04:00 Respiratory Rate 19 09/10/16 08:02 Blood Pressure 105/62 09/10/16 04:00 O2 Sat by Pulse Oximetry (%) 96 09/10/16 08:02 Constitutional: Yes: Well Nourished HENT: Yes: WNL Neck: Yes: WNL, Supple Cardiovascular: Yes: WNL, Regular Rate and Rhythm Respiratory: Yes: WNL Gastrointestinal: Yes: Normal Bowel Sounds, Soft Renal/: Yes: WNL Breast(s): Yes: WNL Musculoskeletal: Yes: WNL Extremities: Yes: WNL Edema: No ...Motor Strength: WNL Psychiatric: Yes: WNL Labs: CBC, BMP 09/10/16 07:30 09/10/16 07:30 Assessment/Plan major problem is neutropenia which most likely a drug reaction to sulfasalazine other possibility is auto immune secondary to UC.less likely.will continue neupogen.will consider steroids depending on course ,smear shows adequate platelets no WBCs rbc are normal, plan gcsf neupogen daily continue antibiotics hold steroids
[2016-09-10] MEDS ORDERED: MAGNESIUM SULF 50% (8.12 MEQ/2 ML-1 GM VIAL) ONE (13:23)
[2016-09-10] MEDS: ACETAMINOPHEN 325 MG TABLET (FP) PO PRN ×2 (14:09→23:40)
--- NOTE | 2016-09-10 14:44 | EKG ---
Test Reason : Blood Pressure : / mmHG Vent. Rate : 097 BPM Atrial Rate : 097 BPM P-R Int : 110 ms QRS Dur : 082 ms QT Int : 350 ms P-R-T Axes : 039 045 055 degrees QTc Int : 444 ms SINUS RHYTHM WITH SHORT KS WHEN COMPARED WITH ECG OF 30-APR-2014 10:08, VENT. RATE HAS INCREASED BY 37 BPM Confirmed by MD MITZY, NADIRA ([id number]) on 09/10/2016 2:43:57 PM Referred By: MARIA A Confirmed By:NADIRA FORRESTER MD
[2016-09-10] MEDS ORDERED: REFRIGERATED ANITBIOTICS ONE (21:38)
[2016-09-10] MEDS: TBO-FILGRASTIM 480 MCG/0.8 ML DISP.SYRIN SQ SCH (21:42)
[2016-09-10] MEDS ORDERED: LOPERAMIDE HCL 2 MG CAPSULE PO PRN (21:58)
[2016-09-10] MEDS ORDERED: LOPERAMIDE HCL 2 MG CAPSULE PO ONE (21:58)
[2016-09-11] MEDS: HYDROCORTISONE 2.5% TOPICAL CREAM 30 GM TUBE PR SCH (09:20)
[2016-09-11] MEDS: LACTOBACILLUS ACIDOPHILUS 1 EACH TAB (FP) PO SCH (09:20)
[2016-09-11] MEDS: RANITIDINE HCL 150 MG TABLET (FP) PO SCH ×2 (09:20→21:45)
[2016-09-11] MEDS: D5-NS + 20 MEQ KCL - 1,000 ML IV SCH (09:21)
--- NOTE | 2016-09-11 09:21 | PN ---
Progress Note, Physician History of Present Illness: C/O loose BMs Remains febrile, leukopenic No rigors No rash Blood c/s no growth - Current Medication List Current Medications: Active Medications Acetaminophen (Tylenol -) 650 mg PO Q4H PRN PRN Reason: FEVER Last Admin: 09/10/16 23:40 Dose: 650 mg Cefepime HCl (Maxipime 2gm Ivpb (Pre-Docked)) 2 gm IVPB Q8H-IV [facility] PRN Reason: Protocol Last Admin: 09/11/16 01:36 Dose: 2 gm Hydrocortisone (Anusol 2.5% Hc Cream -) 1 applic HI DAILY [facility] Last Admin: 09/10/16 09:14 Dose: 1 applic Dextrose/Sodium Chloride (Dextrose 5%-Normal Saline+20 Meq Kcl -) 1,000 mls @ 75 mls/hr IV ASDIR [facility] Last Admin: 09/10/16 09:15 Dose: 75 mls/hr Lactobacillus Acidophilus (Bacid -) 1 tab PO DAILY [facility] Last Admin: 09/10/16 09:14 Dose: 1 tab Loperamide HCl (Imodium -) 2 mg PO Q8H PRN PRN Reason: DIARRHEA Ondansetron HCl (Zofran Injection) 4 mg IVPUSH Q4H PRN PRN Reason: NAUSEA Ranitidine HCl (Zantac -) 150 mg PO BID [facility] Last Admin: 09/10/16 21:27 Dose: 150 mg Tbo-Filgrastim (Granix -) 480 mcg SQ HS [facility] Stop: 09/17/16 21:59 Last Admin: 09/10/16 21:42 Dose: 480 mcg - Objective Vital Signs: Vital Signs Temperature 99.2 F 09/11/16 06:00 Pulse Rate 81 09/11/16 06:00 Respiratory Rate 18 09/11/16 06:00 Blood Pressure 124/72 09/11/16 06:00 O2 Sat by Pulse Oximetry (%) 94 L 09/11/16 06:00 Constitutional: Yes: No Distress Eyes: Yes: Conjunctiva Clear HENT: Yes: Other (no oral lesions) Cardiovascular: Yes: Regular Rate and Rhythm, S1, S2 Respiratory: Yes: CTA Bilaterally Gastrointestinal: Yes: Normal Bowel Sounds, Soft. No: Tenderness Edema: No Integumentary: No: Rash Labs: CBC, BMP 09/10/16 07:30 09/10/16 07:30 INR, PTT INR 1.16 (0.82-1.09) 09/09/16 12:54 Assessment/Plan Febrile neutropenia Possible adverse drug reaction (sulfa) Ulcerative colitis repeat CBC hematology consult appreciated. Neupogen ordered Continue empiric cefepime
[2016-09-11 10:44] LABS: MCH 33.2 pg (25.7-33.7); MCHC 33.8 g/dl (32.0-36.0); MEAN PLT VOLUME 7.6 fl (7.5-11.1); PLATELET COUNT 232 K/MM3 (134-434); RDW 13.5 % (11.6-15.6)
[2016-09-11 10:52] LABS: ALBUMIN 2.9 g/dl (3.5-5.0); ALK PHOS 84 U/L (32-92); ANION GAP 5 (8-16); BILIRUBIN,DIRECT 0.3 mg/dl (0.0-0.2); BILIRUBIN,TOTAL 1.1 mg/dl (0.2-1.0); CALCIUM 8.6 mg/dl (8.4-10.2); CO2 23 mmol/L (22-28); CREATININE 0.6 mg/dl (0.6-1.3); GLUCOSE,RANDOM 120 mg/dl (74-106); SGOT/AST 18 U/L (10-42); SGPT/ALT 45 U/L (10-40); TOT PROT 6.4 g/dl (6.4-8.3)
--- NOTE | 2016-09-11 10:56 | PN ---
Physical Exam: SUBJECTIVE: Patient seen and examined, reports feeling slightly improved, pt does report generalized weakness and nausea. tmax 101.1 on overnight OBJECTIVE:patient is a 60 year old female with a past medical history of ulcerative colitis and autoimmune hemolytic anemia. Patient was admitted from the emergency department for profound neutropenia and sepsis. PCP: Dr Roberts Heme: Dr Santos GI: [facility] Vital Signs Period Temp Pulse Resp BP Sys/Pizarro Pulse Ox Last 24 Hr 99 F-101.1 F 81-91 18-20 117-137/62-79 94-100 GENERAL: The patient is awake, alert, and fully oriented, in no acute distress. HEAD: Normal with no signs of trauma. EYES: PERRL, extraocular movements intact, sclera anicteric, conjunctiva clear. No ptosis. ENT: Ears normal, nares patent, oropharynx clear without exudates, marisol noted to soft palate, no ulcerations noted, dry mucous membranes. NECK: Trachea midline, full range of motion, supple. LUNGS: Breath sounds equal, clear to auscultation bilaterally, no wheezes, no crackles, no accessory muscle use. HEART: Regular rate and rhythm, S1, S2 without murmur, rub or gallop. ABDOMEN: Soft, nontender, nondistended, normoactive bowel sounds, no guarding, no rebound, no hepatosplenomegaly, no masses. RECTAL: external hemorrhoids. non thrombosed EXTREMITIES: 2+ pulses, warm, well-perfused, no edema. NEUROLOGICAL: Cranial nerves II through XII grossly intact. Normal speech, gait not observed. PSYCH: Normal mood, normal affect. SKIN: Warm, dry, normal turgor, no rashes or lesions noted Laboratory Results - last 24 hr 09/10/16 09/10/16 07:30 10:00 WBC 0.8 L* RBC 2.83 L Hgb 9.5 L Hct 27.2 L MCV 96.3 H MCHC 34.9 RDW 12.8 Plt Count 150 D MPV 7.8 D Neutrophils % 2.0 L Lymphocytes % 91.1 H Monocytes % 6.5 Eosinophils % 0.4 Basophils % 0.0 Retic Count 2.69 H Blood Type O POSITIVE Antibody Screen Negative CMP Sodium 133 mmol/L (136-145) L 09/11/16 10:20 Potassium 4.5 mmol/L (3.5-5.1) 09/11/16 10:20 Chloride 105 mmol/L (98-107) 09/11/16 10:20 Carbon Dioxide 23 mmol/L (22-28) 09/11/16 10:20 Anion Gap 5 (8-16) L 09/11/16 10:20 BUN 8 mg/dl (7-18) D 09/11/16 10:20 Creatinine 0.6 mg/dl (0.6-1.3) 09/11/16 10:20 Creat Clearance w eGFR > 60 (>60) 09/09/16 12:54 Random Glucose 120 mg/dl (74-106) H 09/11/16 10:20 Lactic Acid 0.9 mmol/L (0.4-2.0) 09/09/16 12:54 Calcium 8.6 mg/dl (8.4-10.2) 09/11/16 10:20 Phosphorus 3.2 mg/dl (2.5-4.6) 09/10/16 07:30 Magnesium 1.6 mg/dL (1.8-2.4) L 09/10/16 07:30 Total Bilirubin 1.1 mg/dl (0.2-1.0) H D 09/11/16 10:20 Direct Bilirubin 0.3 mg/dl (0.0-0.2) H 09/11/16 10:20 AST 18 U/L (10-42) D 09/11/16 10:20 ALT 45 U/L (10-40) H D 09/11/16 10:20 Alkaline Phosphatase 84 U/L (32-92) 09/11/16 10:20 LD Total 131 U/L (91-180) 09/10/16 07:30 Creatine Kinase 30 IU/L (26-140) 09/09/16 12:54 Troponin I < 0.03 ng/ml (0.03-0.50) L 09/09/16 12:54 C-Reactive Protein 10.2 MG/DL (0.00-0.3) H D 09/09/16 18:37 Total Protein 6.4 g/dl (6.4-8.3) 09/11/16 10:20 Albumin 2.9 g/dl (3.5-5.0) L D 09/11/16 10:20 Active Medications Generic Name Dose Route Start Last Admin Trade Name Freq PRN Reason Stop Dose Admin Acetaminophen 650 mg 09/09/16 17:10 09/10/16 23:40 Tylenol - PO 650 mg Q4H PRN Administration FEVER Cefepime HCl 2 gm 09/09/16 18:00 09/11/16 09:20 Maxipime 2gm Ivpb (Pre-Docked) IVPB 2 gm Q8H-IV [facility] Administration Protocol Hydrocortisone 1 applic 09/10/16 10:00 09/11/16 09:20 Anusol 2.5% Hc Cream - [place] 1 applic DAILY [facility] Administration Dextrose/Sodium Chloride 1,000 mls @ 75 mls/hr 09/10/16 08:30 09/11/16 09:21 Dextrose 5%-Normal Saline+20 Meq Kcl - IV 75 mls/hr ASDIR [facility] Administration Lactobacillus Acidophilus 1 tab 09/10/16 10:00 09/11/16 09:20 Bacid - PO 1 tab DAILY [facility] Administration Loperamide HCl 2 mg 09/10/16 21:58 Imodium - PO Q8H PRN DIARRHEA Ondansetron HCl 4 mg 09/09/16 17:07 Zofran Injection IVPUSH Q4H PRN NAUSEA Ranitidine HCl 150 mg 09/10/16 10:00 09/11/16 09:20 Zantac - PO 150 mg BID [facility] Administration Tbo-Filgrastim 480 mcg 09/10/16 22:00 09/10/16 21:42 Granix - SQ 09/17/16 21:59 480 mcg HS [facility] Administration Microbiology 09/09/16 12:39 Blood - Peripheral Venous Blood Culture - Preliminary NO GROWTH OBTAINED AFTER 48 HOURS, INCUBATION TO CONTINUE FOR 3 DAYS. 09/09/16 12:39 Blood - Peripheral Venous Blood Culture - Preliminary NO GROWTH OBTAINED AFTER 48 HOURS, INCUBATION TO CONTINUE FOR 3 DAYS. 09/09/16 22:15 Urine - Urine Clean Catch Urine Culture - Final NO GROWTH OBTAINED 09/10/16 22:40 Stool Clostridium difficile Antigen (CARLA) - Final, negative 09/10/16 22:40 Stool Clostridium difficile Toxin Assay - Final, negative 09/10/16 10:00 Blood - Peripheral Venous Blood Parasites Smear (CARLA) - Final , no parasites Radiology Results CT/ABDOMEN PELVIS CT WITH CONTR Abdomen / pelvis CT (with intravenous and oral contrast) Clinical information: history of ulcerative colitis; now with left lower quadrant pain Multiplanar imaging was performed utilizing intravenous and oral contrast. There is no definite CT evidence of current colitis. Mild to moderate colitis may not be demonstrable on CT. Evaluation of the ascending colon and cecum is limited due to respiratory motion artifact. In comparison to a previous CT exam of 04/27/2010 note is made of apparent interval resolution of concentric wall thickening involving the length of the transverse colon. No evidence of pneumoperitoneum, free intraperitoneal fluid or bowel obstruction. There is no CT evidence of acute diverticulitis or appendicitis. Interval development of minimal to mild splenomegaly is noted with a 13 cm length. Patent splenic vein. There is probable diffuse fatty infiltration of the liver. The pancreas, gallbladder, adrenal glands and kidneys demonstrate no discrete abnormality. No aortic aneurysm. There is no gross small bowel pathology. No definite lymphadenopathy is seen. There has been interval resolution of a 2.4 cm left ovarian cyst. No definite pelvic pathology is visualized. The visualized osseous structures demonstrate no obvious acute pathology. impression: No definite CT findings of acute pathology are identified. Minimal to mild splenomegaly. Probable diffuse hepatic steatosis. Reported By: Vick Barnes MD 09/09/16 1639 CHEST X-RAY PORTABLE* Fever. Single AP chest x-ray. Shallow inspiration. No evidence of pneumonia, CHF, atelectasis or pleural effusion. The heart is borderline enlarged. Uncoiled thoracic aorta. Intact visualized osseous structures. Impression. No evidence of active pulmonary disease. Reported By: Praneeth Mchugh MD 09/09/16 1412 ECG Sinus rhythm with short NH, vent rate 97, NH 110, QTC 444, No acute ST/T changes ASSESSMENT/PLAN: 1) ID Neutropenic fever - tmax 101.1, fever likely secondary to autoimmune disease vs drug reaction ( sulfazine), blood and urine culture NTD - continue cefepime 2gm TID-->ID consulted and following (Nilesh/Bradford) neutropenia - wbc 0.7, likely secondary to sulfazine - neupogen given yesterday 09/09/16, close monitoring, pending AM labs hemolytic autoimmune anemia - hgb 9.5 mcv 96.3, close monitoring - hold IV steroids as per finance lecturer, Dr Fields consulted and following, 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 Visit type - Emergency Visit Emergency Visit: Yes ED Registration Date: 09/09/16 Care time: The patient presented to the Emergency Department on the above date and was hospitalized for further evaluation of their emergent condition. - New Patient This patient is new to me today: No - Critical Care Critical Care patient: No - Discharge Referral Referred to [facility] Med P.C.: No
[2016-09-11 11:09] LABS: WHITE BLOOD COUNT 0.8 K/mm3 (4.0-10.8)
[2016-09-11 16:24] LABS: PARV B19 IGG 6.5 index (0.0-0.8); PARV B19 IGM 0.3 index (0.0-0.8)
[2016-09-11] MEDS: NYSTATIN 500,000 UNITS/5 ML SUSPENSION PO SCH ×2 (17:31→23:50)
[2016-09-11 20:06] LABS: PLATELET ESTIMATE ADEQUATE (NORMAL)
[2016-09-11] MEDS: TBO-FILGRASTIM 480 MCG/0.8 ML DISP.SYRIN SQ SCH (22:03)
[2016-09-12] MEDS: NYSTATIN 500,000 UNITS/5 ML SUSPENSION PO SCH ×3 (06:05→17:06)
[2016-09-12 08:12] LABS: MCHC 34.1 g/dl (32.0-36.0); MEAN CELL VOLUME 96.8 fl (80-96); MEAN PLT VOLUME 7.9 fl (7.5-11.1); RDW 13.5 % (11.6-15.6)
--- NOTE | 2016-09-12 08:18 | PN ---
Physical Exam: SUBJECTIVE: Patient seen and examined, patient reports feeling better, tolerating meals, low grade temp noted, tmax 100.2 OBJECTIVE:patient is a 60 year old female with a past medical history of ulcerative colitis and autoimmune hemolytic anemia. Patient was admitted from the emergency department for profound neutropenia and sepsis. PCP: Dr Roberts Heme: Dr Santos GI: [facility] Vital Signs Period Temp Pulse Resp BP Sys/Pizarro Pulse Ox Last 24 Hr 98.2 F-100.2 F 81-85 16-20 126-141/70-80 93-95 GENERAL: The patient is awake, alert, and fully oriented, in no acute distress. HEAD: Normal with no signs of trauma. EYES: PERRL, extraocular movements intact, sclera anicteric, conjunctiva clear. No ptosis. ENT: Ears normal, nares patent, oropharynx clear without exudates, marisol noted to soft palate, no ulcerations noted, moist mucous membranes. NECK: Trachea midline, full range of motion, supple. LUNGS: Breath sounds equal, clear to auscultation bilaterally, no wheezes, no crackles, no accessory muscle use. HEART: Regular rate and rhythm, S1, S2 without murmur, rub or gallop. ABDOMEN: Soft, nontender, nondistended, normoactive bowel sounds, no guarding, no rebound, no hepatosplenomegaly, no masses. RECTAL: external hemorrhoids. non thrombosed EXTREMITIES: 2+ pulses, warm, well-perfused, no edema. NEUROLOGICAL: Cranial nerves II through XII grossly intact. Normal speech, gait not observed. PSYCH: Normal mood, normal affect. SKIN: Warm, dry, normal turgor, no rashes or lesions noted Laboratory Results - last 24 hr CBC WBC 1.0 K/mm3 (4.0-10.8) L* 09/12/16 07:50 Corrected WBC (auto) Cancelled 09/09/16 12:54 RBC 2.64 M/mm3 (3.60-5.2) L 09/12/16 07:50 Hgb 8.7 GM/dl (10.7-15.3) L D 09/12/16 07:50 Hct 25.5 % (32.4-45.2) L 09/12/16 07:50 MCV 96.8 fl (80-96) H 09/12/16 07:50 MCHC 34.1 g/dl (32.0-36.0) 09/12/16 07:50 RDW 13.5 % (11.6-15.6) 09/12/16 07:50 Plt Count 226 K/MM3 (134-434) 09/12/16 07:50 MPV 7.9 fl (7.5-11.1) 09/12/16 07:50 Neutrophils % 3.0 % (42.8-82.8) L 09/12/16 07:50 Lymphocytes % 97.0 % (8-40) H 09/12/16 07:50 Monocytes % 6.5 % (3.8-10.2) 09/10/16 07:30 Eosinophils % 0.4 % (0-4.5) 09/10/16 07:30 Basophils % 0.0 % (0-2.0) 09/10/16 07:30 Nucleated RBCs 1 % (0-0) H 09/09/16 13:35 Differential Comment Few large plts 09/11/16 10:20 Smudge Cells Cancelled 09/09/16 12:54 Platelet Estimate Adequate (NORMAL) 09/12/16 07:50 Platelet Comment Marked plt clumping 09/12/16 07:50 Platelet Comment Rare giant plts 09/09/16 13:35 RBC Morphology Cancelled 09/09/16 12:54 Retic Count 2.69 % (0.5-1.5) H 09/10/16 07:30 CMP Sodium 129 mmol/L (136-145) L 09/12/16 07:50 Potassium 3.9 mmol/L (3.5-5.1) 09/12/16 07:50 Chloride 105 mmol/L (98-107) 09/12/16 07:50 Carbon Dioxide 22 mmol/L (22-28) 09/12/16 07:50 Anion Gap 2 (8-16) L 09/12/16 07:50 BUN 6 mg/dl (7-18) L D 09/12/16 07:50 Creatinine 0.5 mg/dl (0.6-1.3) L 09/12/16 07:50 Creat Clearance w eGFR > 60 (>60) 09/12/16 07:50 Random Glucose 106 mg/dl (74-106) 09/12/16 07:50 Lactic Acid 0.9 mmol/L (0.4-2.0) 09/09/16 12:54 Calcium 8.0 mg/dl (8.4-10.2) L 09/12/16 07:50 Phosphorus 3.2 mg/dl (2.5-4.6) 09/10/16 07:30 Magnesium 1.7 mg/dL (1.8-2.4) L 09/12/16 07:50 Total Bilirubin 0.6 mg/dl (0.2-1.0) D 09/12/16 07:50 Direct Bilirubin 0.3 mg/dl (0.0-0.2) H 09/11/16 10:20 AST 16 U/L (10-42) 09/12/16 07:50 ALT 31 U/L (10-40) D 09/12/16 07:50 Alkaline Phosphatase 75 U/L (32-92) 09/12/16 07:50 LD Total 131 U/L (91-180) 09/10/16 07:30 Creatine Kinase 30 IU/L (26-140) 09/09/16 12:54 Troponin I < 0.03 ng/ml (0.03-0.50) L 09/09/16 12:54 C-Reactive Protein 10.2 MG/DL (0.00-0.3) H D 09/09/16 18:37 Total Protein 5.9 g/dl (6.4-8.3) L 09/12/16 07:50 Albumin 2.6 g/dl (3.5-5.0) L 09/12/16 07:50 Active Medications Generic Name Dose Route Start Last Admin Trade Name Freq PRN Reason Stop Dose Admin Acetaminophen 650 mg 09/09/16 17:10 09/10/16 23:40 Tylenol - PO 650 mg Q4H PRN Administration FEVER Cefepime HCl 2 gm 09/09/16 18:00 09/12/16 02:11 Maxipime 2gm Ivpb (Pre-Docked) IVPB 2 gm Q8H-IV [facility] Administration Protocol Hydrocortisone 1 applic 09/10/16 10:00 09/11/16 09:20 Anusol 2.5% Hc Cream - CT 1 applic DAILY [facility] Administration Dextrose/Sodium Chloride 1,000 mls @ 75 mls/hr 09/10/16 08:30 09/11/16 09:21 Dextrose 5%-Normal Saline+20 Meq Kcl - IV 75 mls/hr ASDIR [facility] Administration Lactobacillus Acidophilus 1 tab 09/10/16 10:00 09/11/16 09:20 Bacid - PO 1 tab DAILY [facility] Administration Loperamide HCl 2 mg 09/10/16 21:58 Imodium - PO Q8H PRN DIARRHEA Nystatin 500,000 units 09/11/16 18:00 09/12/16 06:05 Nystatin Oral Suspension - PO 500,000 units Q6HPO [facility] Administration Ondansetron HCl 4 mg 09/09/16 17:07 Zofran Injection IVPUSH Q4H PRN NAUSEA Ranitidine HCl 150 mg 09/10/16 10:00 09/11/16 21:45 Zantac - PO 150 mg BID [facility] Administration Tbo-Filgrastim 480 mcg 09/10/16 22:00 09/11/16 22:03 Granix - SQ 09/17/16 21:59 480 mcg HS [facility] Administration Microbiology 09/09/16 12:39 Blood - Peripheral Venous Blood Culture - Preliminary NO GROWTH OBTAINED AFTER 72 HOURS, INCUBATION TO CONTINUE FOR 2 DAYS. 09/09/16 12:39 Blood - Peripheral Venous Blood Culture - Preliminary NO GROWTH OBTAINED AFTER 72 HOURS, INCUBATION TO CONTINUE FOR 2 DAYS. 09/09/16 22:15 Urine - Urine Clean Catch Urine Culture - Final NO GROWTH OBTAINED 09/10/16 22:40 Stool Clostridium difficile Antigen (CARLA) - Final, negative 09/10/16 22:40 Stool Clostridium difficile Toxin Assay - Final, negative 09/10/16 10:00 Blood - Peripheral Venous Blood Parasites Smear (CARLA) - Final , negative ASSESSMENT/PLAN: Radiology Results CT/ABDOMEN PELVIS CT WITH CONTR Abdomen / pelvis CT (with intravenous and oral contrast) impression: No definite CT findings of acute pathology are identified. Minimal to mild splenomegaly. Probable diffuse hepatic steatosis. Reported By: Vick Barnes MD 09/09/16 2039 CHEST X-RAY PORTABLE* Fever. Single AP chest x-ray. Shallow inspiration. No evidence of pneumonia, CHF, atelectasis or pleural effusion. The heart is borderline enlarged. Uncoiled thoracic aorta. Intact visualized osseous structures. Impression. No evidence of active pulmonary disease. 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 Visit type - Emergency Visit Emergency Visit: Yes ED Registration Date: 09/09/16 Care time: The patient presented to the Emergency Department on the above date and was hospitalized for further evaluation of their emergent condition. - New Patient This patient is new to me today: No - Critical Care Critical Care patient: No - Discharge Referral Referred to [facility] Med P.C.: No
[2016-09-12 08:26] LABS: ALBUMIN 2.6 g/dl (3.5-5.0); ALK PHOS 75 U/L (32-92); ANION GAP 2 (8-16); BILIRUBIN,TOTAL 0.6 mg/dl (0.2-1.0); CO2 22 mmol/L (22-28); CREATININE 0.5 mg/dl (0.6-1.3); GLUCOSE,RANDOM 106 mg/dl (74-106); MAGNESIUM 1.7 mg/dL (1.8-2.4); SGOT/AST 16 U/L (10-42); SGPT/ALT 31 U/L (10-40); TOT PROT 5.9 g/dl (6.4-8.3)
[2016-09-12 10:04] LABS: PLATELET COUNT 226 K/MM3 (134-434)
[2016-09-12 10:12] LABS: INR 1.16 (0.82-1.09); PROTHROMBIN TIME (PATIENT) 12.9 SEC (10.2-13.0)
[2016-09-12 10:50] LABS: PLATELET ESTIMATE ADEQUATE (NORMAL)
[2016-09-12] MEDS: LACTOBACILLUS ACIDOPHILUS 1 EACH TAB (FP) PO SCH (10:52)
[2016-09-12] MEDS: RANITIDINE HCL 150 MG TABLET (FP) PO SCH ×2 (10:52→21:28)
[2016-09-12] MEDS: D5-NS + 20 MEQ KCL - 1,000 ML IV SCH (10:52)
[2016-09-12] MEDS: HYDROCORTISONE 2.5% TOPICAL CREAM 30 GM TUBE PR SCH (10:53)
--- NOTE | 2016-09-12 11:14 | PN ---
Progress Note, Physician Chief Complaint: Awake, alert No complaints No c/o fever/ chills Low grade temp 100.2 WBC 1.0 Cultures no growth - Current Medication List Current Medications: Active Medications Acetaminophen (Tylenol -) 650 mg PO Q4H PRN PRN Reason: FEVER Last Admin: 09/10/16 23:40 Dose: 650 mg Cefepime HCl (Maxipime 2gm Ivpb (Pre-Docked)) 2 gm IVPB Q8H-IV [facility] PRN Reason: Protocol Last Admin: 09/12/16 10:51 Dose: 2 gm Hydrocortisone (Anusol 2.5% Hc Cream -) 1 applic [place] DAILY [facility] Last Admin: 09/12/16 10:53 Dose: 1 applic Lactobacillus Acidophilus (Bacid -) 1 tab PO DAILY [facility] Last Admin: 09/12/16 10:52 Dose: 1 tab Loperamide HCl (Imodium -) 2 mg PO Q8H PRN PRN Reason: DIARRHEA Nystatin (Nystatin Oral Suspension -) 500,000 units PO Q6HPO [facility] Last Admin: 09/12/16 06:05 Dose: 500,000 units Ondansetron HCl (Zofran Injection) 4 mg IVPUSH Q4H PRN PRN Reason: NAUSEA Ranitidine HCl (Zantac -) 150 mg PO BID [facility] Last Admin: 09/12/16 10:52 Dose: 150 mg Tbo-Filgrastim (Granix -) 480 mcg SQ HS [facility] Stop: 09/17/16 21:59 Last Admin: 09/11/16 22:03 Dose: 480 mcg - Objective Vital Signs: Vital Signs Temperature 98.7 F 09/12/16 10:00 Pulse Rate 77 09/12/16 10:00 Respiratory Rate 18 09/12/16 10:00 Blood Pressure 137/86 09/12/16 10:00 O2 Sat by Pulse Oximetry (%) 98 09/12/16 10:00 Constitutional: Yes: No Distress Eyes: Yes: Conjunctiva Clear Cardiovascular: Yes: Regular Rate and Rhythm, S1 Respiratory: Yes: CTA Bilaterally Gastrointestinal: Yes: Normal Bowel Sounds, Soft. No: Tenderness Edema: No Labs: CBC, BMP 09/12/16 07:50 09/12/16 07:50 INR, PTT INR 1.16 (0.82-1.09) 09/12/16 Unknown Assessment/Plan Febrile neutropenia resolving Possible adverse drug reaction (sulfa) Ulcerative colitis Continue neupogen, empiric cefepime
[2016-09-12] MEDS ORDERED: MAGNESIUM SULF 50% (8.12 MEQ/2 ML-1 GM VIAL) IVPB ONE (12:10)
[2016-09-12] MEDS: ACETAMINOPHEN 325 MG TABLET (FP) PO PRN (17:05)
--- NOTE | 2016-09-12 20:12 | PN ---
Progress Note (short form) - Note Progress Note: 5P Reports temp to 100.9 assoc w chills w/i past hour. Feels better w tylenol given Denies localizing infxs sxs PE NAD, non-toxic HEENT - mild thrush? on tongue lungs - cta cvs - reg S1S2 abd - soft, nt ext - no edema skin - no rash Imp - UC, febrile neutropenia, bkd recent sulfasalazine instituted appreciate ID mgt cont abx, neupogen. wbc is slowly improving, anemia is worsened but labs not supportive of hemolysis
[2016-09-12] MEDS: TBO-FILGRASTIM 480 MCG/0.8 ML DISP.SYRIN SQ SCH (21:17)
[2016-09-13] MEDS: NYSTATIN 500,000 UNITS/5 ML SUSPENSION PO SCH ×4 (06:51→19:13)
--- NOTE | 2016-09-13 07:50 | PN ---
Physical Exam: SUBJECTIVE: Patient seen and examined, reports nausea, is tolerating po fluids, tmax 100.9 OBJECTIVE:patient is a 60 year old female with a past medical history of ulcerative colitis and autoimmune hemolytic anemia. Patient was admitted from the emergency department for profound neutropenia and neutropenic fever. PCP: Dr Roberts Heme: Dr Santos GI: [facility] Vital Signs Period Temp Pulse Resp BP Sys/Pizarro Pulse Ox Last 24 Hr 98.7 F-100.9 F 69-81 18-20 131-164/71-91 94-98 GENERAL: The patient is awake, alert, and fully oriented, in no acute distress. HEAD: Normal with no signs of trauma. EYES: PERRL, extraocular movements intact, sclera anicteric, conjunctiva clear. No ptosis. ENT: Ears normal, nares patent, oropharynx clear without exudates, marisol noted to soft palate, no ulcerations noted, dry mucous membranes. NECK: Trachea midline, full range of motion, supple. LUNGS: Breath sounds equal, clear to auscultation bilaterally, no wheezes, no crackles, no accessory muscle use. HEART: Regular rate and rhythm, S1, S2 without murmur, rub or gallop. ABDOMEN: Soft, nontender, nondistended, normoactive bowel sounds, no guarding, no rebound, no hepatosplenomegaly, no masses. RECTAL: external hemorrhoids. non thrombosed EXTREMITIES: 2+ pulses, warm, well-perfused, no edema. NEUROLOGICAL: Cranial nerves II through XII grossly intact. Normal speech, gait not observed. PSYCH: Normal mood, normal affect. SKIN: Warm, dry, normal turgor, no rashes or lesions noted Laboratory Results - last 24 hr CBC WBC 1.1 K/mm3 (4.0-10.8) L* 09/13/16 07:00 Corrected WBC (auto) Cancelled 09/09/16 12:54 RBC 2.81 M/mm3 (3.60-5.2) L 09/13/16 07:00 Hgb 9.2 GM/dl (10.7-15.3) L 09/13/16 07:00 Hct 27.2 % (32.4-45.2) L 09/13/16 07:00 MCV 96.8 fl (80-96) H 09/13/16 07:00 MCHC 33.9 g/dl (32.0-36.0) 09/13/16 07:00 RDW 13.4 % (11.6-15.6) 09/13/16 07:00 Plt Count Information Systems Administrator 09/13/16 07:00 MPV 7.7 fl (7.5-11.1) 09/13/16 07:00 Neutrophils % 5.0 % (42.8-82.8) L D 09/13/16 07:00 Lymphocytes % 85.0 % (8-40) H 09/13/16 07:00 Monocytes % 10.0 % (3.8-10.2) 09/13/16 07:00 Eosinophils % Information Systems Administrator 09/13/16 07:00 Basophils % Information Systems Administrator 09/13/16 07:00 Nucleated RBCs 1 % (0-0) H 09/09/16 13:35 Differential Comment Few large plts 09/11/16 10:20 Smudge Cells Cancelled 09/09/16 12:54 Platelet Estimate Adequate (NORMAL) 09/13/16 07:00 Platelet Comment Mod plt clumping 09/13/16 07:00 Platelet Comment Rare giant plts 09/09/16 13:35 RBC Morphology Cancelled 09/09/16 12:54 Retic Count 2.69 % (0.5-1.5) H 09/10/16 07:30 CMP Sodium 128 mmol/L (136-145) L 09/13/16 07:00 Potassium 4.2 mmol/L (3.5-5.1) 09/13/16 07:00 Chloride 101 mmol/L (98-107) 09/13/16 07:00 Carbon Dioxide 20 mmol/L (22-28) L 09/13/16 07:00 Anion Gap 7 (8-16) L 09/13/16 07:00 BUN 8 mg/dl (7-18) D 09/13/16 07:00 Creatinine 0.6 mg/dl (0.6-1.3) 09/13/16 07:00 Creat Clearance w eGFR > 60 (>60) 09/13/16 07:00 Random Glucose 90 mg/dl (74-106) 09/13/16 07:00 Lactic Acid 0.9 mmol/L (0.4-2.0) 09/09/16 12:54 Calcium 8.2 mg/dl (8.4-10.2) L 09/13/16 07:00 Phosphorus 2.7 mg/dl (2.5-4.6) 09/13/16 07:00 Magnesium 1.7 mg/dL (1.8-2.4) L 09/13/16 07:00 Total Bilirubin 1.5 mg/dl (0.2-1.0) H D 09/13/16 07:00 Direct Bilirubin 0.3 mg/dl (0.0-0.2) H 09/11/16 10:20 AST 23 U/L (10-42) D 09/13/16 07:00 ALT 37 U/L (10-40) 09/13/16 07:00 Alkaline Phosphatase 87 U/L (32-92) 09/13/16 07:00 LD Total 131 U/L (91-180) 09/10/16 07:30 Creatine Kinase 30 IU/L (26-140) 09/09/16 12:54 Troponin I < 0.03 ng/ml (0.03-0.50) L 09/09/16 12:54 C-Reactive Protein 10.2 MG/DL (0.00-0.3) H D 09/09/16 18:37 Total Protein 5.9 g/dl (6.4-8.3) L 09/13/16 07:00 Albumin 2.7 g/dl (3.5-5.0) L 09/13/16 07:00 TSH 1.55 uIU/ml (0.358-3.74) 09/13/16 07:45 Active Medications Generic Name Dose Route Start Last Admin Trade Name Freq PRN Reason Stop Dose Admin Acetaminophen 650 mg 09/09/16 17:10 09/12/16 17:05 Tylenol - PO 650 mg Q4H PRN Administration FEVER Cefepime HCl 2 gm 09/09/16 18:00 09/13/16 02:35 Maxipime 2gm Ivpb (Pre-Docked) IVPB 2 gm Q8H-IV [place] Administration Protocol Hydrocortisone 1 applic 09/10/16 10:00 09/12/16 10:53 Anusol 2.5% Hc Cream - NE 1 applic DAILY [place] Administration Lactobacillus Acidophilus 1 tab 09/10/16 10:00 09/12/16 10:52 Bacid - PO 1 tab DAILY [place] Administration Loperamide HCl 2 mg 09/10/16 21:58 Imodium - PO Q8H PRN DIARRHEA Nystatin 500,000 units 09/11/16 18:00 09/13/16 06:51 Nystatin Oral Suspension - PO Not Given Q6HPO [place] Ondansetron HCl 4 mg 09/09/16 17:07 Zofran Injection IVPUSH Q4H PRN NAUSEA Ranitidine HCl 150 mg 09/10/16 10:00 09/12/16 21:28 Zantac - PO 150 mg BID [place] Administration Tbo-Filgrastim 480 mcg 09/10/16 22:00 09/12/16 21:17 Granix - SQ 09/17/16 21:59 480 mcg HS SPRING Administration Microbiology 09/09/16 12:39 Blood - Peripheral Venous Blood Culture - Preliminary NO GROWTH OBTAINED AFTER 96 HOURS, INCUBATION TO CONTINUE FOR 1 DAYS. 09/09/16 12:39 Blood - Peripheral Venous Blood Culture - Preliminary NO GROWTH OBTAINED AFTER 96 HOURS, INCUBATION TO CONTINUE FOR 1 DAYS. 09/09/16 22:15 Urine - Urine Clean Catch Urine Culture - Final NO GROWTH OBTAINED 09/10/16 22:40 Stool Clostridium difficile Antigen (CARLA) - Final, negative 09/10/16 22:40 Stool Clostridium difficile Toxin Assay - Final, negative 09/10/16 10:00 Blood - Peripheral Venous Blood Parasites Smear (CARLA) - Final , negative Radiology Results CT/ABDOMEN PELVIS CT WITH CONTR Abdomen / pelvis CT (with intravenous and oral contrast) impression: No definite CT findings of acute pathology are identified. Minimal to mild splenomegaly. Probable diffuse hepatic steatosis. Reported By: Vick Barnes MD 09/09/16 1639 CHEST X-RAY PORTABLE* Fever. Single AP chest x-ray. Shallow inspiration. No evidence of pneumonia, CHF, atelectasis or pleural effusion. The heart is borderline enlarged. Uncoiled thoracic aorta. Intact visualized osseous structures. Impression. No evidence of active pulmonary disease. Reported By: Praneeth Mchugh MD 09/09/16 1412 ECG Sinus rhythm with short NE, vent rate 97, NE 110, QTC 444, No acute ST/T changes ASSESSMENT/PLAN: 1) ID Neutropenic fever - tmax 101.9, blood and urine cultures are NTD, fever likely secondary to drug reaction (sulfazine) - continue cefepime 2gm TID-->ID consulted and following (Nilesh/[facility]) neutropenia - wbc 1..1, likely secondary to sulfazine - continue daily neupogen, case discussed with heme/onc, Dr Santos, pt is slow to respond to neupogen, agrees with prednisone 60mg daily - close monitoring, repeat cbc at 1400 hemolytic autoimmune anemia - hgb 9.2 mcv 96.3, close monitoring, no active bleeding noted - Dr Fields consulted and following, 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 Visit type - Emergency Visit Emergency Visit: Yes ED Registration Date: 09/09/16 Care time: The patient presented to the Emergency Department on the above date and was hospitalized for further evaluation of their emergent condition. - New Patient This patient is new to me today: No - Critical Care Critical Care patient: No
[2016-09-13 08:54] LABS: ALBUMIN 2.7 g/dl (3.5-5.0); ALK PHOS 87 U/L (32-92); ANION GAP 7 (8-16); BILIRUBIN,TOTAL 1.5 mg/dl (0.2-1.0); CALCIUM 8.2 mg/dl (8.4-10.2); CO2 20 mmol/L (22-28); CREATININE 0.6 mg/dl (0.6-1.3); GLUCOSE,RANDOM 90 mg/dl (74-106); MAGNESIUM 1.7 mg/dL (1.8-2.4); PHOSPHOROUS 2.7 mg/dl (2.5-4.6); SGOT/AST 23 U/L (10-42); SGPT/ALT 37 U/L (10-40); TOT PROT 5.9 g/dl (6.4-8.3)
--- NOTE | 2016-09-13 09:19 | PN ---
Physical Exam: SUBJECTIVE: Patient seen and examined OBJECTIVE: Vital Signs Period Temp Pulse Resp BP Sys/Pizarro Pulse Ox Last 24 Hr 98.7 F-100.9 F 69-81 18-20 131-164/71-91 94-98 GENERAL: The patient is awake, alert, and fully oriented, in no acute distress. HEAD: Normal with no signs of trauma. EYES: PERRL, extraocular movements intact, sclera anicteric, conjunctiva clear. No ptosis. ENT: Ears normal, nares patent, oropharynx clear without exudates, moist mucous membranes. NECK: Trachea midline, full range of motion, supple. LUNGS: Breath sounds equal, clear to auscultation bilaterally, no wheezes, no crackles, no accessory muscle use. HEART: Regular rate and rhythm, S1, S2 without murmur, rub or gallop. ABDOMEN: Soft, nontender, nondistended, normoactive bowel sounds, no guarding, no rebound, no hepatosplenomegaly, no masses. EXTREMITIES: 2+ pulses, warm, well-perfused, no edema. NEUROLOGICAL: Cranial nerves II through XII grossly intact. Normal speech, gait not observed. PSYCH: Normal mood, normal affect. SKIN: Warm, dry, normal turgor, no rashes or lesions noted Laboratory Results - last 24 hr 09/11/16 09/12/16 09/12/16 10:20 07:50 Unknown WBC 1.0 L* RBC 2.64 L Hgb 8.7 L D Hct 25.5 L MCV 96.8 H MCHC 34.1 RDW 13.5 Plt Count 226 MPV 7.9 Neutrophils % 3.0 L Lymphocytes % 97.0 H Platelet Estimate Adequate Platelet Comment Marked plt clumping INR 1.16 Sodium Potassium Chloride Carbon Dioxide Anion Gap BUN Creatinine Creat Clearance w eGFR Random Glucose Calcium Phosphorus Magnesium Total Bilirubin AST ALT Alkaline Phosphatase Total Protein Albumin JONNY Screen Positive H JONNY Homogeneous Pattern 1:80 JONNY Nucleolar Pattern TNP JONNY Speckled Pattern TNP JONNY Centromere Pattern TNP 09/13/16 07:00 WBC RBC Hgb Hct MCV MCHC RDW Plt Count MPV Neutrophils % Lymphocytes % Platelet Estimate Platelet Comment INR Sodium 128 L Potassium 4.2 Chloride 101 Carbon Dioxide 20 L Anion Gap 7 L BUN 8 D Creatinine 0.6 Creat Clearance w eGFR > 60 Random Glucose 90 Calcium 8.2 L Phosphorus 2.7 Magnesium 1.7 L Total Bilirubin 1.5 H D AST 23 D ALT 37 Alkaline Phosphatase 87 Total Protein 5.9 L Albumin 2.7 L JONNY Screen JONNY Homogeneous Pattern JONNY Nucleolar Pattern JONNY Speckled Pattern JONNY Centromere Pattern Active Medications Generic Name Dose Route Start Last Admin Trade Name Freq PRN Reason Stop Dose Admin Acetaminophen 650 mg 09/09/16 17:10 09/12/16 17:05 Tylenol - PO 650 mg Q4H PRN Administration FEVER Cefepime HCl 2 gm 09/09/16 18:00 09/13/16 02:35 Maxipime 2gm Ivpb (Pre-Docked) IVPB 2 gm Q8H-IV [place] Administration Protocol Hydrocortisone 1 applic 09/10/16 10:00 09/12/16 10:53 Anusol 2.5% Hc Cream - SD 1 applic DAILY [place] Administration Lactobacillus Acidophilus 1 tab 09/10/16 10:00 09/12/16 10:52 Bacid - PO 1 tab DAILY [place] Administration Loperamide HCl 2 mg 09/10/16 21:58 Imodium - PO Q8H PRN DIARRHEA Nystatin 500,000 units 09/11/16 18:00 09/13/16 06:51 Nystatin Oral Suspension - PO Not Given Q6HPO [place] Ondansetron HCl 4 mg 09/09/16 17:07 Zofran Injection IVPUSH Q4H PRN NAUSEA Ranitidine HCl 150 mg 09/10/16 10:00 09/12/16 21:28 Zantac - PO 150 mg BID [place] Administration Tbo-Filgrastim 480 mcg 09/10/16 22:00 09/12/16 21:17 Granix - SQ 09/17/16 21:59 480 mcg HS [place] Administration ASSESSMENT/PLAN:
[2016-09-13] MEDS ORDERED: MAGNESIUM SULFATE 2 GM in SODIUM CHLORIDE 100 ML IVPB ONE (09:23)
[2016-09-13] MEDS: HYDROCORTISONE 2.5% TOPICAL CREAM 30 GM TUBE PR SCH (09:25)
[2016-09-13] MEDS: LACTOBACILLUS ACIDOPHILUS 1 EACH TAB (FP) PO SCH (09:26)
[2016-09-13] MEDS: RANITIDINE HCL 150 MG TABLET (FP) PO SCH ×2 (09:26→21:55)
[2016-09-13] MEDS ORDERED: MAGNESIUM SULF 50% (8.12 MEQ/2 ML-1 GM VIAL) IVPB ONE (10:00)
[2016-09-13 10:13] LABS: MCH 32.8 pg (25.7-33.7); MCHC 33.9 g/dl (32.0-36.0); MEAN CELL VOLUME 96.8 fl (80-96); MEAN PLT VOLUME 7.7 fl (7.5-11.1); RDW 13.4 % (11.6-15.6)
[2016-09-13 10:18] LABS: WHITE BLOOD COUNT 1.1 K/mm3 (4.0-10.8)
[2016-09-13 10:26] LABS: PLATELET ESTIMATE ADEQUATE (NORMAL)
[2016-09-13] MEDS ORDERED: DEXTROSE 5%-NORMAL SALINE 1,000 ML IV SCH ×2 (10:30→14:12)
--- NOTE | 2016-09-13 10:54 | PN ---
Progress Note, Physician History of Present Illness: Remains febrile, leukopenic Blood c/s no growth No focal complaint Slow response to neupogen - Current Medication List Current Medications: Active Medications Acetaminophen (Tylenol -) 650 mg PO Q4H PRN PRN Reason: FEVER Last Admin: 09/12/16 17:05 Dose: 650 mg Cefepime HCl (Maxipime 2gm Ivpb (Pre-Docked)) 2 gm IVPB Q8H-IV [place] PRN Reason: Protocol Last Admin: 09/13/16 09:26 Dose: 2 gm Hydrocortisone (Anusol 2.5% Hc Cream -) 1 applic [place] DAILY [place] Last Admin: 09/13/16 09:25 Dose: 1 applic Dextrose/Sodium Chloride (D5-Ns -) 1,000 mls @ 75 mls/hr IV ASDIR [facility] Stop: 09/13/16 23:49 Lactobacillus Acidophilus (Bacid -) 1 tab PO DAILY [facility] Last Admin: 09/13/16 09:26 Dose: 1 tab Loperamide HCl (Imodium -) 2 mg PO Q8H PRN PRN Reason: DIARRHEA Nystatin (Nystatin Oral Suspension -) 500,000 units PO Q6HPO [facility] Last Admin: 09/13/16 06:51 Dose: Not Given Ondansetron HCl (Zofran Injection) 4 mg IVPUSH Q4H PRN PRN Reason: NAUSEA Ranitidine HCl (Zantac -) 150 mg PO BID [facility] Last Admin: 09/13/16 09:26 Dose: 150 mg Tbo-Filgrastim (Granix -) 480 mcg SQ HS [facility] Stop: 09/17/16 21:59 Last Admin: 09/12/16 21:17 Dose: 480 mcg - Objective Vital Signs: Vital Signs Temperature 100.6 F H 09/13/16 05:00 Pulse Rate 69 09/13/16 05:00 Respiratory Rate 20 09/13/16 05:00 Blood Pressure 164/91 09/13/16 05:00 O2 Sat by Pulse Oximetry (%) 98 09/13/16 05:56 Constitutional: Yes: No Distress Eyes: Yes: Conjunctiva Clear Cardiovascular: Yes: Regular Rate and Rhythm, S1, S2 Respiratory: Yes: CTA Bilaterally Gastrointestinal: Yes: Normal Bowel Sounds, Soft. No: Tenderness Edema: No Labs: CBC, BMP 09/13/16 07:00 09/13/16 07:00 INR, PTT INR 1.16 (0.82-1.09) 09/12/16 Unknown Assessment/Plan Febrile neutropenia slow response to neupogen Possible adverse drug reaction (sulfa) Ulcerative colitis Continue neupogen, empiric cefepime Will discuss use of steroids with Dr Santos
[2016-09-13] MEDS ORDERED: predniSONE 20 MG TABLET (UD) PO SCH (12:00)
[2016-09-13 12:14] LABS: THYROXINE (T4) 6.6 ug/dl (4.8-13.9)
[2016-09-13 12:21] LABS: THYROID STIMULATING HORMONE 1.55 uIU/ml (0.358-3.74)
[2016-09-13 14:03] LABS: PH,URINE 5.5 (4.5-8); URINE APPEARANCE Clear; URINE BILIRUBIN Negative (NEGATIVE); URINE GLUCOSE (UA) Negative (NEGATIVE); URINE KETONE 2+ (NEGATIVE); URINE LEUK ESTERASE Negative (NEGATIVE); URINE NITRITE Negative (NEGATIVE); URINE UROBILINOGEN 0.2 E.U/dl (0.2-1.0)
[2016-09-13 14:08] LABS: URINE BLOOD 1+ (NEGATIVE); URINE COLOR YELLOW; URINE PROTEIN 2+ (NEGATIVE)
[2016-09-13 14:09] LABS: URINE BACTERIA FEW /hpf (NEGATIVE); URINE WBC 0-3 (3-5)
[2016-09-13 16:44] LABS: ANION GAP 6 (8-16); CO2 20 mmol/L (22-28); CREATININE 0.6 mg/dl (0.6-1.3); GLUCOSE,RANDOM 96 mg/dl (74-106)
[2016-09-13 16:47] LABS: MCH 32.7 pg (25.7-33.7); MEAN CELL VOLUME 96.2 fl (80-96); RDW 13.9 % (11.6-15.6); WHITE BLOOD COUNT 1.7 K/mm3 (4.0-10.8)
[2016-09-13 16:51] LABS: MEAN PLT VOLUME 7.8 fl (7.5-11.1)
[2016-09-13] MEDS: LEVOFLOXACIN 500 MG TABLET (FP) PO SCH (19:13)
[2016-09-13] MEDS: SODIUM CHLORIDE 1,000 ML IV SCH (20:30)
[2016-09-13] MEDS ORDERED: REFRIGERATED ANITBIOTICS ONE ×2 (21:05→21:09)
[2016-09-13] MEDS: TBO-FILGRASTIM 480 MCG/0.8 ML DISP.SYRIN SQ SCH (21:56)
[2016-09-14] MEDS: NYSTATIN 500,000 UNITS/5 ML SUSPENSION PO SCH ×4 (05:34→18:06)
[2016-09-14 08:02] LABS: MCH 32.7 pg (25.7-33.7); MCHC 33.8 g/dl (32.0-36.0); MEAN CELL VOLUME 96.5 fl (80-96); MEAN PLT VOLUME 8.2 fl (7.5-11.1); PLATELET COUNT 147 K/MM3 (134-434); RDW 13.7 % (11.6-15.6); WHITE BLOOD COUNT 3.5 K/mm3 (4.0-10.8)
[2016-09-14 08:29] LABS: ANION GAP 6 (8-16); CALCIUM 8.1 mg/dl (8.4-10.2); CO2 20 mmol/L (22-28); CREATININE 0.6 mg/dl (0.6-1.3); GLUCOSE,RANDOM 97 mg/dl (74-106); PHOSPHOROUS 2.9 mg/dl (2.5-4.6)
[2016-09-14] MEDS: LEVOFLOXACIN 500 MG TABLET (FP) PO SCH (09:59)
[2016-09-14] MEDS: HYDROCORTISONE 2.5% TOPICAL CREAM 30 GM TUBE PR SCH (09:59)
[2016-09-14] MEDS: RANITIDINE HCL 150 MG TABLET (FP) PO SCH ×2 (09:59→21:29)
[2016-09-14] MEDS: LACTOBACILLUS ACIDOPHILUS 1 EACH TAB (FP) PO SCH (09:59)
--- NOTE | 2016-09-14 12:15 | PN ---
Physical Exam: SUBJECTIVE: Patient seen and examined at bedside. OBJECTIVE: Vital Signs 3 Period Temp Pulse Resp BP Sys/Pizarro Pulse Ox Last 24 Hr 97.5 F-101.1 F 70-86 16-20 128-154/69-90 94-98 GENERAL: The patient is awake, alert, and fully oriented, in no acute distress. HEAD: Normal with no signs of trauma. EYES: PERRL, extraocular movements intact, sclera anicteric, conjunctiva clear. No ptosis. ENT: Ears normal, nares patent, oropharynx clear without exudates, moist mucous membranes. NECK: Trachea midline, full range of motion, supple. LUNGS: Breath sounds equal, clear to auscultation bilaterally, no wheezes, no crackles, no accessory muscle use. HEART: Regular rate and rhythm, S1, S2 without murmur, rub or gallop. ABDOMEN: Soft, nontender, nondistended, normoactive bowel sounds, no guarding, no rebound, no hepatosplenomegaly, no masses. EXTREMITIES: 2+ pulses, warm, well-perfused, no edema. NEUROLOGICAL: Cranial nerves II through XII grossly intact. Normal speech, gait steady. PSYCH: Normal mood, normal affect. SKIN: Warm, dry, normal turgor, no rashes or lesions noted Laboratory Results - last 24 hr 3 09/13/16 09/13/16 09/13/16 07:45 13:51 14:00 WBC RBC Hgb Hct MCV MCH MCHC RDW Plt Count MPV Neutrophils % Lymphocytes % Sodium Potassium Chloride Carbon Dioxide Anion Gap BUN Creatinine Random Glucose Serum Osmolality Calcium Phosphorus Magnesium TSH 1.55 Urine Color Yellow Urine Appearance Clear Urine pH 5.5 Ur Specific [place] 1.025 Urine Protein 2+ H Urine Glucose (UA) Negative Urine Ketones 2+ H Urine Blood 1+ H Urine Nitrite Negative Urine Bilirubin Negative Urine Urobilinogen 0.2 e.u/dl Ur Leukocyte Esterase Negative Urine RBC 3-5 Urine WBC 0-3 Ur Epithelial Cells Few Urine Bacteria Few Hyaline Casts 3-5 Urine Osmolality 482 3 09/13/16 09/13/16 09/13/16 14:00 14:20 14:20 WBC 1.7 L* D RBC 2.96 L Hgb 9.7 L Hct 28.5 L MCV 96.2 H MCH 32.7 MCHC 34.0 RDW 13.9 Plt Count MPV 7.8 Neutrophils % Y Lymphocytes % Y Sodium 126 L Potassium 4.1 Chloride 100 Carbon Dioxide 20 L Anion Gap 6 L BUN 8 Creatinine 0.6 Random Glucose 96 Serum Osmolality 263 L Calcium 8.0 L Phosphorus Magnesium TSH Urine Color Urine Appearance Urine pH Ur Specific [place] Urine Protein Urine Glucose (UA) Urine Ketones Urine Blood Urine Nitrite Urine Bilirubin Urine Urobilinogen Ur Leukocyte Esterase Urine RBC Urine WBC Ur Epithelial Cells Urine Bacteria Hyaline Casts Urine Osmolality 3 09/14/16 09/14/16 07:48 07:48 WBC 3.5 L D RBC 2.86 L Hgb 9.4 L Hct 27.6 L MCV 96.5 H MCH 32.7 MCHC 33.8 RDW 13.7 Plt Count 147 D MPV 8.2 Neutrophils % Y Lymphocytes % Y Sodium 131 L Potassium 4.1 Chloride 105 Carbon Dioxide 20 L Anion Gap 6 L BUN 10 D Creatinine 0.6 Random Glucose 97 Serum Osmolality Calcium 8.1 L Phosphorus 2.9 Magnesium 2.0 TSH Urine Color Urine Appearance Urine pH Ur Specific [place] Urine Protein Urine Glucose (UA) Urine Ketones Urine Blood Urine Nitrite Urine Bilirubin Urine Urobilinogen Ur Leukocyte Esterase Urine RBC Urine WBC Ur Epithelial Cells Urine Bacteria Hyaline Casts Urine Osmolality Active Medications 3 Generic Name Dose Route Start Last Admin Trade Name Freq PRN Reason Stop Dose Admin Acetaminophen 650 mg 09/09/16 17:10 09/12/16 17:05 Tylenol - PO 650 mg Q4H PRN Administration FEVER Hydrocortisone 1 applic 09/10/16 10:00 09/14/16 09:59 Anusol 2.5% Hc Cream - AL 1 applic DAILY [place] Administration Sodium Chloride 1,000 mls @ 100 mls/hr 09/13/16 21:00 09/13/16 20:30 Normal Saline - IV 100 mls/hr ASDIR [place] Administration Lactobacillus Acidophilus 1 tab 09/10/16 10:00 09/14/16 09:59 Bacid - PO 1 tab DAILY [place] Administration Levofloxacin 500 mg 09/13/16 18:30 09/14/16 09:59 Levaquin - PO 500 mg DAILY [place] Administration Loperamide HCl 2 mg 09/10/16 21:58 Imodium - PO Q8H PRN DIARRHEA Nystatin 500,000 units 09/11/16 18:00 09/14/16 07:02 Nystatin Oral Suspension - PO Not Given Q6HPO [place] Ondansetron HCl 4 mg 09/09/16 17:07 Zofran Injection IVPUSH Q4H PRN NAUSEA Ranitidine HCl 150 mg 09/10/16 10:00 09/14/16 09:59 Zantac - PO 150 mg BID [place] Administration Tbo-Filgrastim 480 mcg 09/10/16 22:00 09/13/16 21:56 Granix - SQ 09/17/16 21:59 480 mcg HS [place] Administration Microbiology 09/09/16 12:39 Blood - Peripheral Venous Blood Culture - Final NO GROWTH AFTER 5 DAYS INCUBATION 09/09/16 12:39 Blood - Peripheral Venous Blood Culture - Final NO GROWTH AFTER 5 DAYS INCUBATION 09/13/16 14:00 Urine - Urine Clean Catch Legionella Antigen - Final 09/13/16 14:00 Urine - Urine Clean Catch Streptococcus pneumoniae Antigen ( M - Final 09/09/16 22:15 Urine - Urine Clean Catch Urine Culture - Final NO GROWTH OBTAINED 09/10/16 22:40 Stool Clostridium difficile Antigen (CARLA) - Final 09/10/16 22:40 Stool Clostridium difficile Toxin Assay - Final 09/10/16 10:00 Blood - Peripheral Venous Blood Parasites Smear (CARLA) - Final 09/09/16 12:54 Urine - Urine Clean Catch Urine Culture - Final Contaminated: Please Repeat Radiology Results CT/ABDOMEN PELVIS CT WITH CONTR Abdomen / pelvis CT (with intravenous and oral contrast) impression: No definite CT findings of acute pathology are identified. Minimal to mild splenomegaly. Probable diffuse hepatic steatosis. Reported By: Vick aBrnes MD 09/09/16 1639 CHEST X-RAY PORTABLE* Fever. Single AP chest x-ray. Shallow inspiration. No evidence of pneumonia, CHF, atelectasis or pleural effusion. The heart is borderline enlarged. Uncoiled thoracic aorta. Intact visualized osseous structures. Impression. No evidence of active pulmonary disease. Reported By: Praneeth Mchugh MD 09/09/16 1412 RAD/CHEST PA LAT* Segmental left lower lobe consolidation with blunting of the left costophrenic angle concerning for the pneumonia with reactive left pleural effusion. Prominent cardiac silhouette. Uncoiled thoracic aorta. There is no evidence of widening of the superior mediastinum. Blunting of the right costophrenic angle is suggested. Impression. Segmental left lower consolidation with reactive pleural effusion concerning for pneumonia. Reported by: Praneeth Mchugh MD 09/13/16 1523 ECG Sinus rhythm with short AL, vent rate 97, AL 110, QTC 444, No acute ST/T changes ASSESSMENT/PLAN: A: 60 yo woman with leukopenia 2/2 sulfasalazine complicated by HCAP being treated with Levaquin PO. Continues to experience LANE and tachypnea. P: 1. Neutropenia - trend WBC - trend fever curve - continue Neupogen 2. Autoimmune Hemolytic Anemia - LDH ordered - bilirubin studies 3. Fevers - monitor temp curve - Tylenol prn - Levaquin for PNA - cx negative 4. HCAP - Levaquin 500mg po daily - trend fever curve - Incentive spirometry 5. Ulcerative Colitis - hold sulfasalazine - no s/s at this time - continue to monitor 6. Hyponatremia - Na-127->131 - Serum osmol-263 - NS@100 - trend lytes 7. F/E/N - trend lytes - NS@100 - replete prn - neutropenic diet 8. PPX - OOB Dispo- requires inpatient treatment of her acute medical conditions. Code [place]- FULL CODE Visit type - Emergency Visit Emergency Visit: Yes ED Registration Date: 09/09/16 Care time: The patient presented to the Emergency Department on the above date and was hospitalized for further evaluation of their emergent condition. - New Patient This patient is new to me today: Yes Date on this admission: 09/17/16 - Critical Care Critical Care patient: No
[2016-09-14] MEDS: ACETAMINOPHEN 325 MG TABLET (FP) PO PRN (17:00)
[2016-09-14] MEDS: TBO-FILGRASTIM 480 MCG/0.8 ML DISP.SYRIN SQ SCH (21:28)
[2016-09-14] MEDS: SODIUM CHLORIDE 1,000 ML IV SCH (21:28)
[2016-09-15] MEDS: NYSTATIN 500,000 UNITS/5 ML SUSPENSION PO SCH ×4 (01:08→18:08)
[2016-09-15 08:34] LABS: ALBUMIN 2.7 g/dl (3.5-5.0); ALK PHOS 90 U/L (32-92); ANION GAP 6 (8-16); BILIRUBIN,DIRECT 0.2 mg/dl (0.0-0.2); BILIRUBIN,TOTAL 1.2 mg/dl (0.2-1.0); CALCIUM 8.1 mg/dl (8.4-10.2); CO2 20 mmol/L (22-28); CREATININE 0.6 mg/dl (0.6-1.3); GLUCOSE,RANDOM 77 mg/dl (74-106); LDH 271 U/L (91-180); SGOT/AST 22 U/L (10-42); SGPT/ALT 29 U/L (10-40); TOT PROT 5.7 g/dl (6.4-8.3)
[2016-09-15 08:43] LABS: MCH 31.8 pg (25.7-33.7); MCHC 32.9 g/dl (32.0-36.0); MEAN CELL VOLUME 96.5 fl (80-96); MEAN PLT VOLUME 8.5 fl (7.5-11.1); RDW 14.5 % (11.6-15.6); WHITE BLOOD COUNT 10.5 K/mm3 (4.0-10.8)
--- NOTE | 2016-09-15 09:24 | PN ---
Physical Exam: SUBJECTIVE: Patient seen and examined at bedside. Pt seen ambulating in hallway. Upon exam, pt SOB with RR-28 and 4 word dyspnea. She also reports chest pressure at the left midsternal border. Describes as a "book on my chest. " OBJECTIVE: Vital Signs 3 Period Temp Pulse Resp BP Sys/Pizarro Pulse Ox Last 24 Hr 98 F-101.3 F 72-87 16-19 120-178/78-90 93-97 GENERAL: The patient is awake, alert, and fully oriented, conversational dyspnea and pallor. HEAD: Normal with no signs of trauma. EYES: PERRL, extraocular movements intact, sclera anicteric, conjunctiva clear. No ptosis. ENT: Ears normal, nares patent, oropharynx clear without exudates, moist mucous membranes. NECK: Trachea midline, full range of motion, supple. LUNGS: Breath sounds equal, clear to auscultation bilaterally, no wheezes, no crackles, (+)accessory muscle use. HEART: Regular rate and rhythm, S1, S2 without murmur, rub or gallop. ABDOMEN: Soft, nontender, nondistended, normoactive bowel sounds, no guarding, no rebound, no hepatosplenomegaly, no masses. EXTREMITIES: 2+ pulses, warm, well-perfused, no edema. NEUROLOGICAL: Cranial nerves II through XII grossly intact. Normal speech, gait steady. PSYCH: Normal mood, normal affect. SKIN: Warm, dry, normal turgor, no rashes or lesions noted Laboratory Results - last 24 hr 3 09/14/16 09/15/16 09/15/16 07:48 06:00 06:00 WBC 3.5 L D 10.5 D RBC 2.86 L 2.98 L Hgb 9.4 L 9.5 L Hct 27.6 L 28.8 L MCV 96.5 H 96.5 H MCH 32.7 31.8 MCHC 33.8 32.9 RDW 13.7 14.5 Plt Count 147 D MPV 8.2 8.5 Neutrophils % 40.0 L D Y Lymphocytes % 46.0 H D Y Monocytes % 14.0 H Platelet Comment Few clums presnt Sodium 132 L Potassium 3.8 Chloride 106 Carbon Dioxide 20 L Anion Gap 6 L BUN 10 Creatinine 0.6 Creat Clearance w eGFR > 60 Random Glucose 77 D Calcium 8.1 L Total Bilirubin 1.2 H Direct Bilirubin 0.2 D AST 22 ALT 29 D Alkaline Phosphatase 90 LD Total 271 H D Total Protein 5.7 L Albumin 2.7 L Active Medications 3 Generic Name Dose Route Start Last Admin Trade Name Freq PRN Reason Stop Dose Admin Acetaminophen 650 mg 09/09/16 17:10 09/14/16 17:00 Tylenol - PO 650 mg Q4H PRN Administration FEVER Hydrocortisone 1 applic 09/10/16 10:00 09/14/16 09:59 Anusol 2.5% Hc Cream - [place] 1 applic DAILY SPRING Administration Sodium Chloride 1,000 mls @ 100 mls/hr 09/13/16 21:00 09/14/16 21:28 Normal Saline - IV 100 mls/hr ASDIR [facility] Administration Lactobacillus Acidophilus 1 tab 09/10/16 10:00 09/14/16 09:59 Bacid - PO 1 tab DAILY [facility] Administration Levofloxacin 500 mg 09/13/16 18:30 09/14/16 09:59 Levaquin - PO 500 mg DAILY [facility] Administration Loperamide HCl 2 mg 09/10/16 21:58 Imodium - PO Q8H PRN DIARRHEA Nystatin 500,000 units 09/11/16 18:00 09/15/16 01:08 Nystatin Oral Suspension - PO Not Given Q6HPO [facility] Ondansetron HCl 4 mg 09/09/16 17:07 Zofran Injection IVPUSH Q4H PRN NAUSEA Ranitidine HCl 150 mg 09/10/16 10:00 09/14/16 21:29 Zantac - PO 150 mg BID [facility] Administration Tbo-Filgrastim 480 mcg 09/10/16 22:00 09/14/16 21:28 Granix - SQ 09/17/16 21:59 480 mcg HS SPRING Administration EKG- new TWI in v2 and v3. T-wave flattening v5. No STEMI. ASSESSMENT/PLAN: A: 60 yo woman with leukopenia 2/2 sulfasalazine complicated by HCAP being treated with Levaquin PO. Continues to experience LANE and tachypnea now with chest pressure at left midsternal border. ACS vs PE vs PNA. PE less likely as Well's score-0. Will collect ddimer and CTA if positive. Will do ACS w/u. HEART Score- 4. P: 1. Neutropenia- resolved - WBC- 10.5 - trend fever curve - discontinue Neupogen 2. Chest pain - serial troponins - EKG- as above - ddimer-1112 - CTA chest- (+)Left upper lobe PE - telemetry - ASA 325mg - Lipitor 80mg hs - metoprolol 12.5mg bid - echo - cardiology consult 3. Pulmonary emboli - FOBT (-) - heparin gtt started - transfer to [facility] 3. Autoimmune Hemolytic Anemia - LDH elevated - bilirubin mildly elevated - no evidence of hemolysis 4. Fevers - febrile overnight - monitor temp curve - Tylenol prn - Levaquin for PNA - cx negative 5. HCAP - Levaquin 500mg po daily - trend fever curve - Incentive spirometry 6. Ulcerative Colitis - hold sulfasalazine - no s/s at this time - continue to monitor 7. Hyponatremia - Na-127->131->132 - Serum osmol-263 - NS stopped - trend lytes 8. F/E/N - trend lytes - replete prn - change to regular diet 9. PPX - OOB Dispo- requires inpatient treatment of her acute medical conditions. Code Staus- FULL CODE Visit type - Emergency Visit Emergency Visit: Yes ED Registration Date: 09/09/16 Care time: The patient presented to the Emergency Department on the above date and was hospitalized for further evaluation of their emergent condition. - New Patient This patient is new to me today: No - Critical Care Critical Care patient: No
[2016-09-15] MEDS: RANITIDINE HCL 150 MG TABLET (FP) PO SCH ×2 (09:31→21:25)
[2016-09-15] MEDS: LACTOBACILLUS ACIDOPHILUS 1 EACH TAB (FP) PO SCH (09:31)
[2016-09-15] MEDS: HYDROCORTISONE 2.5% TOPICAL CREAM 30 GM TUBE PR SCH (09:31)
[2016-09-15] MEDS: LEVOFLOXACIN 500 MG TABLET (FP) PO SCH (09:31)
[2016-09-15 10:50] LABS: METAMYELOCYTE 2 % (0-2); PLATELET COUNT 143 K/MM3 (134-434); PLATELET ESTIMATE ADEQUATE (NORMAL)
[2016-09-15] MEDS ORDERED: METOPROLOL TARTRATE 25 MG TABLET (FP) ONE (11:07)
[2016-09-15] MEDS ORDERED: ASPIRIN 81 MG CHEWABLE TABLETS PO ONE (11:15)
[2016-09-15] MEDS ORDERED: METOPROLOL TARTRATE 25 MG TABLET (FP) PO ONE (11:30)
[2016-09-15] MEDS ORDERED: HEPARIN NA (PORCINE) 5,000 UNITS/ML 1ML VIAL IVPUSH PRN (15:42)
[2016-09-15] MEDS: HEPARIN INFUSION - 500 ML IVPB SCH (15:50)
--- NOTE | 2016-09-15 18:24 | CON.CARD ---
Cardiology Consult (text) - Consultation Consultation Note: CC: CP 61 yo with h/o ulcerative colitis and hemolytic anemia fever, vomiting, sob and noted to be neutropenic. Hospital course complicated by CP/sob and new diagnosis of PE/pleural effusions. States for the past few weeks has had increased fatigue. Just got back from 5 hour trip to [place] and had fatigue while there as well ( week long trip), spent most of the time on couch. Upon arriving home developed fever, nausea, vomiting, sob. On admit was neutropenic with elevated tbili and hyponatremia. Has received neupogen and IVF Fever trend decreasing. While here has had worsening abdominal distension and early satiety. Also with progressive sob. Last night with acute episode of non-pleuritic chest pain./ heaviness which still persists. CTA today c/w with PE in [facility] of [facility] and mod pleural effusions. started on heparin and being transferred from [facility] to [facility]. IVF on 09/11 --> hyponatremia worsened. No orthopnea, palps, dizziness, le edema, claudication, bleeding, transient neurologic symptoms. no cough, congestion, myalgias, headache, visual disturbances. PAST MEDICAL HISTORY: Ulcerative colitis hemolytic anemia s/p hospitalization 2010, followed by Dr. Santos PAST SURGICAL HISTORY: pt denies Social History: Smoking: pt denies Alcohol: 1-2 glasses wine/night Drugs: pt denies Family History: mother age 94, UTI/dementia father age 84, [place] 2 brothers alive and well no children ros: per hpi Ambulatory Orders Sulfasalazine [Sulfazine] 4 tab PO DAILY 09/09/16 Current Medications Acetaminophen (Tylenol -) 650 mg PO Q4H PRN PRN Reason: FEVER Last Admin: 09/14/16 17:00 Dose: 650 mg Atorvastatin Calcium (Lipitor -) 80 mg PO HS SPRING Heparin Sodium (Porcine) (Heparin -) 1,000 unit IVPUSH PRN PRN PRN Reason: Heparin Heparin Sodium (Porcine) (Heparin -) 5,000 unit IVPUSH PRN PRN PRN Reason: Heparin Last Admin: 09/15/16 16:00 Dose: 5,000 unit Hydrocortisone (Anusol 2.5% Hc Cream -) 1 applic MA DAILY SPRING Last Admin: 09/15/16 09:31 Dose: 1 applic Sodium Chloride (Normal Saline -) 1,000 mls @ 100 mls/hr IV ASDIR [facility] Last Admin: 09/14/16 21:28 Dose: 100 mls/hr Heparin Sodium/Dextrose (Heparin Infusion -) 500 mls @ 20 mls/hr IVPB TITR SPRING ; 1,000 UNITS/HR PRN Reason: Protocol Last Admin: 09/15/16 15:50 Dose: 20 mls/hr Lactobacillus Acidophilus (Bacid -) 1 tab PO DAILY [facility] Last Admin: 09/15/16 09:31 Dose: 1 tab Levofloxacin (Levaquin -) 500 mg PO DAILY [facility] Last Admin: 09/15/16 09:31 Dose: 500 mg Loperamide HCl (Imodium -) 2 mg PO Q8H PRN PRN Reason: DIARRHEA Metoprolol Tartrate (Lopressor -) 12.5 mg PO BID [facility] Nystatin (Nystatin Oral Suspension -) 500,000 units PO Q6HPO [facility] Last Admin: 09/15/16 12:48 Dose: Not Given Ondansetron HCl (Zofran Injection) 4 mg IVPUSH Q4H PRN PRN Reason: NAUSEA Ranitidine HCl (Zantac -) 150 mg PO BID [facility] Last Admin: 09/15/16 09:31 Dose: 150 mg Vital Signs - 24 hr 09/14/16 09/14/16 09/15/16 20:19 21:00 06:00 Temperature 98.2 F 99.7 F H Pulse Rate 72 77 Respiratory 18 18 19 Rate Blood Pressure 178/87 147/90 O2 Sat by Pulse 97 95 93 L Oximetry (%) 09/15/16 09/15/16 09/15/16 09:00 10:00 11:00 Temperature Pulse Rate Respiratory 19 19 Rate Blood Pressure O2 Sat by Pulse 93 L 88 L Oximetry (%) 09/15/16 09/15/16 09/15/16 11:09 11:10 12:59 Temperature Pulse Rate 66 61 Respiratory 24 Rate Blood Pressure 163/80 149/72 O2 Sat by Pulse 98 Oximetry (%) 09/15/16 09/15/16 09/15/16 13:29 13:59 14:27 Temperature 98.3 F Pulse Rate 73 80 62 Respiratory 18 Rate Blood Pressure 145/88 138/82 151/77 O2 Sat by Pulse 98 Oximetry (%) 09/15/16 14:59 Temperature Pulse Rate 76 Respiratory Rate Blood Pressure 156/95 O2 Sat by Pulse Oximetry (%) Intake & Output 09/13/16 09/14/16 09/15/16 09/16/16 07:59 07:59 07:59 07:59 Intake Total 925 1710 400 600 Balance 925 1710 400 600 Weight 152 lb 9 oz 152 lb 9 oz nad, calm tachypneic, conversational dyspnea jvd flat, neck supple bibasilar dullness, nl effort rrr nl s1, s2 no mrg + bs soft nt nd ext without e/c/c no carotid bruits aaox3 no jaundice, diaphoresis. CBC, BMP 09/15/16 06:00 09/15/16 06:00 Laboratory Tests 09/09/16 09/09/16 09/09/16 12:54 12:54 13:35 WBC 0.7 L* Hgb 10.1 L Nucleated RBCs 1 H D-Dimer Sodium 127 L Magnesium Total Bilirubin 2.4 H Direct Bilirubin AST 27 ALT 29 Alkaline Phosphatase 94 H LD Total Troponin I < 0.03 L Albumin Urine Protein Parvovirus B19 IgG Ab 09/09/16 09/13/16 09/14/16 17:09 13:51 07:48 WBC Hgb Nucleated RBCs D-Dimer Sodium Magnesium 2.0 Total Bilirubin Direct Bilirubin AST ALT Alkaline Phosphatase LD Total Troponin I Albumin Urine Protein 2+ H Parvovirus B19 IgG Ab 6.5 H 09/15/16 09/15/16 09/15/16 06:00 11:00 11:00 WBC Hgb Nucleated RBCs D-Dimer 1112 H Sodium Magnesium Total Bilirubin 1.2 H Direct Bilirubin 0.2 D AST 22 ALT 29 D Alkaline Phosphatase 90 LD Total 271 H D Troponin I 0.03 Albumin 2.7 L Urine Protein Parvovirus B19 IgG Ab 09/15/16 14:50 WBC Hgb Nucleated RBCs D-Dimer Sodium Magnesium Total Bilirubin Direct Bilirubin AST ALT Alkaline Phosphatase LD Total Troponin I 0.04 Albumin Urine Protein Parvovirus B19 IgG Ab EKG: SR, new anterior twi. tele: SR CT: PE in [facility] Mod B ple effusion with bibasilar atelectasis (not present on review of 09/[address] which included images of lungs). prominent mediastinal/hilar nodes. mild splenomegaly. 61 yo with h/o ulcerative colitis and hemolytic anemia fever, vomiting, sob and noted to be neutropenic. Hospital course complicated by CP and new diagnosis of PE/pleural effusions. PE - peripheral. Hemodynamically stable. Will get echo to assess RV function. - AC with heparin drip. Patient with anemia. Monitor hgb on AC - evaluation of possible triggers per pmd. - monitor O2 EKG abnormalities/CP - likely 2/2 PE. trop neg x 2 today. - echo pleural effusions - were not present on 09/[address] --> developed since then after receiving IVF. + proteinuria and low albumin. Sodium trended down while on IVF. - would start IV diuresis. htn - has developed while here. diuresis as above. monitor for improvement. neutropenia/anemia - improved on neupogen. thought to be possibly 2/2 UC meds. Also + for parvovirus. id following.
[2016-09-15] MEDS: FUROSEMIDE 40 MG/4 ML INJECTABLE VIAL IVPUSH SCH (18:56)
[2016-09-15] MEDS ORDERED: METOPROLOL TARTRATE 25 MG TABLET (FP) PO SCH (22:00)
[2016-09-15] MEDS ORDERED: ATORVASTATIN CA 80 MG TABLET (FP) PO SCH (22:00)
[2016-09-16] MEDS: NYSTATIN 500,000 UNITS/5 ML SUSPENSION PO SCH ×6 (00:30→23:30)
[2016-09-16 08:22] LABS: ALBUMIN 2.6 g/dl (3.4-5.0); ALK PHOS 117 U/L (45-117); ANION GAP 11 (8-16); BILIRUBIN,TOTAL 0.7 mg/dL (0.2-1.0); CALCIUM 8.1 mg/dL (8.5-10.1); CO2 26 mmol/L (21-32); CREATININE 0.5 mg/dL (0.55-1.02); GLUCOSE,RANDOM 82 mg/dL (74-106); SGOT/AST 20 U/L (15-37); SGPT/ALT 33 U/L (12-78); TOT PROT 6.2 g/dl (6.4-8.2)
[2016-09-16] MEDS ORDERED: POTASSIUM CHLORIDE TABS 20 MEQ TABLET.ER (FP) PO ONE (08:35)
[2016-09-16] MEDS: LACTOBACILLUS ACIDOPHILUS 1 EACH TAB (FP) PO SCH (09:35)
[2016-09-16] MEDS: LEVOFLOXACIN 500 MG TABLET (FP) PO SCH (09:35)
[2016-09-16] MEDS: RANITIDINE HCL 150 MG TABLET (FP) PO SCH ×2 (09:35→21:11)
[2016-09-16] MEDS: FUROSEMIDE 40 MG/4 ML INJECTABLE VIAL IVPUSH SCH (09:36)
--- NOTE | 2016-09-16 09:36 | PN ---
Progress Note, Physician Chief Complaint: PE History of Present Illness: no cp, sob, palpitaitons, syncope - Current Medication List Current Medications: Active Medications Acetaminophen (Tylenol -) 650 mg PO Q4H PRN PRN Reason: FEVER Last Admin: 09/14/16 17:00 Dose: 650 mg Furosemide (Lasix Injection -) 40 mg IVPUSH DAILY [facility] Last Admin: 09/15/16 18:56 Dose: 40 mg Heparin Sodium (Porcine) (Heparin -) 1,000 unit IVPUSH PRN PRN PRN Reason: Heparin Heparin Sodium (Porcine) (Heparin -) 5,000 unit IVPUSH PRN PRN PRN Reason: Heparin Last Admin: 09/15/16 16:00 Dose: 5,000 unit Hydrocortisone (Anusol 2.5% Hc Cream -) 1 applic ID DAILY [facility] Last Admin: 09/15/16 09:31 Dose: 1 applic Heparin Sodium/Dextrose (Heparin Infusion -) 500 mls @ 20 mls/hr IVPB TITR [facility] ; 1,000 UNITS/HR PRN Reason: Protocol Last Titration: 09/16/16 03:12 Dose: 1,000 units/hr Lactobacillus Acidophilus (Bacid -) 1 tab PO DAILY [facility] Last Admin: 09/15/16 09:31 Dose: 1 tab Levofloxacin (Levaquin -) 500 mg PO DAILY [facility] Last Admin: 09/15/16 09:31 Dose: 500 mg Loperamide HCl (Imodium -) 2 mg PO Q8H PRN PRN Reason: DIARRHEA Nystatin (Nystatin Oral Suspension -) 500,000 units PO Q6HPO [facility] Last Admin: 09/16/16 05:33 Dose: Not Given Ondansetron HCl (Zofran Injection) 4 mg IVPUSH Q4H PRN PRN Reason: NAUSEA Ranitidine HCl (Zantac -) 150 mg PO BID [facility] Last Admin: 09/15/16 21:25 Dose: 150 mg - Objective Vital Signs: Vital Signs Temperature 98 F 09/16/16 09:24 Pulse Rate 80 09/16/16 09:24 Respiratory Rate 20 09/16/16 09:24 Blood Pressure 142/84 09/16/16 09:24 O2 Sat by Pulse Oximetry (%) 98 09/16/16 09:00 Constitutional: Yes: Well Nourished, No Distress, Calm Cardiovascular: Yes: Regular Rate and Rhythm, S1, S2. No: Gallop, Murmur Respiratory: Yes: Regular, CTA Bilaterally. No: Accessory Muscle Use, Rales, Wheezes Extremities: No: Cold Edema: No Neurological: Yes: Alert, Oriented Psychiatric: No: Agitated Labs: CBC, BMP 09/16/16 05:35 INR, PTT INR 1.16 (0.82-1.09) 09/12/16 Unknown - ....Imaging EKG: Other (tele: NSR, no events) Assessment/Plan EKG: SR, new anterior twi. CT: PE in [facility]. Mod B ple effusion with bibasilar atelectasis (not present on review of 09/[address] which included images of lungs). prominent mediastinal/hilar nodes. mild splenomegaly. 61 yo with h/o ulcerative colitis and hemolytic anemia fever, vomiting, sob and noted to be neutropenic. Hospital course complicated by CP and new diagnosis of PE/pleural effusions. PE - peripheral. Hemodynamically stable. Will get echo to assess RV function. - AC with heparin drip. - Patient with anemia and neutropenia (PLTs stable)--monitor trend in H/H - can switch to xarelto or eliquis when clearly stable, but will first monitor labs on heparin (then to have cbc f/u with dr zavala as outpt, per my d/w dr chaudhry) - d/w'd heme: likely provoked (occurred during hosp stay) pleural effusions - were not present on 09/[address] --> developed since then after receiving IVF. + proteinuria and low albumin. Sodium trended down while on IVF. - iv lasix started 09/15--cont same today, rpt CXR in am (09/17) htn - has developed while here, sbp 140s--observe trend neutropenia/anemia - improved on neupogen. thought to be possibly 2/2 UC meds. Also + for parvovirus--per heme NO ONGOING INDICATION FOR TELE MONITORING--D/C'D
[2016-09-16 09:43] LABS: MCH 32.2 pg (25.7-33.7); MCHC 33.2 g/dl (32.0-36.0); MEAN CELL VOLUME 96.8 fl (80-96); MEAN PLT VOLUME 9.6 fl (7.5-11.1); PLATELET COUNT 131 K/MM3 (134-434); RDW 15.3 % (11.6-15.6)
[2016-09-16] MEDS: HEPARIN INFUSION - 500 ML IVPB SCH ×3 (11:21→20:53)
[2016-09-16] MEDS: HEPARIN NA (PORCINE) 5,000 UNITS/ML 1ML VIAL IVPUSH PRN ×2 (11:22→12:12)
[2016-09-16] MEDS: ACETAMINOPHEN 325 MG TABLET (FP) PO PRN ×2 (12:10→22:00)
[2016-09-16 14:10] LABS: C-ANCA <1:20 titer (Neg:<1:20); MYELOPEROXIDASE ANTIBODY <9.0 U/mL (0.0-9.0); P-ANCA <1:20 titer (Neg:<1:20); PROTEINASE-3 ANTIBODY <3.5 U/mL (0.0-3.5)
--- NOTE | 2016-09-16 14:35 | PN ---
Progress Note (short form) - Note Progress Note: Subjective: The patient was seen and examined at the bedside, she denies any chest pain or shortness of breath. ECHO reviewed, no RV strain noted (troponin negative) Discussed with Dr. Turner who states the patient complained of headache this morning. Went to reevaluate the patient at 1715 and the patient reports her headache resolved with Tylenol. No focal deficits on exam. Continue to monitor closely. Instructed the patient if new headache to notify RN immediately. Keep low threshold for head CT per Dr. Turner Current Medications Generic Name Dose Route Start Last Admin Trade Name Freq PRN Reason Stop Dose Admin Acetaminophen 650 mg 09/09/16 17:10 09/16/16 12:10 Tylenol - PO 650 mg Q4H PRN Administration FEVER Furosemide 40 mg 09/15/16 18:30 09/16/16 09:36 Lasix Injection - IVPUSH 40 mg DAILY [facility] Administration Heparin Sodium (Porcine) 1,000 unit 09/15/16 15:42 09/16/16 12:12 Heparin - IVPUSH 1,000 unit PRN PRN Administration Heparin Heparin Sodium (Porcine) 5,000 unit 09/15/16 15:42 09/15/16 16:00 Heparin - IVPUSH 5,000 unit PRN PRN Administration Heparin Hydrocortisone 1 applic 09/10/16 10:00 09/15/16 09:31 Anusol 2.5% Hc Cream - [place] 1 applic DAILY [facility] Administration Heparin Sodium/Dextrose 500 mls @ 20 mls/hr 09/15/16 15:45 09/16/16 12:33 Heparin Infusion - IVPB 22 mls/hr TITR [facility] Administration Protocol 1,000 UNITS/HR Lactobacillus Acidophilus 1 tab 09/10/16 10:00 09/16/16 09:35 Bacid - PO 1 tab DAILY [facility] Administration Levofloxacin 500 mg 09/13/16 18:30 09/16/16 09:35 Levaquin - PO 500 mg DAILY [facility] Administration Loperamide HCl 2 mg 09/10/16 21:58 Imodium - PO Q8H PRN DIARRHEA Nystatin 500,000 units 09/11/16 18:00 09/16/16 09:36 Nystatin Oral Suspension - PO 500,000 units Q6HPO [facility] Administration Ondansetron HCl 4 mg 09/09/16 17:07 Zofran Injection IVPUSH Q4H PRN NAUSEA Ranitidine HCl 150 mg 09/10/16 10:00 09/16/16 09:35 Zantac - PO 150 mg BID [facility] Administration Objective: Vital Signs Period Temp Pulse Resp BP Sys/Pizarro Pulse Ox Last 24 Hr 97.6 F-99 F 60-80 16-20 142-164/65-95 98-98 Physical Exam: General: NAD, A&Ox3 Lungs: CTA bilaterally Heart: RRR, S1S2 Abd: Soft, non-tender, non-distended Ext: Warm, well-perfused. 2+ DP/PT bilaterally Neuro: CN 2-12 intact. Muscle strength 5/5 equal and bilateral CBCD WBC 17.0 K/mm3 (4.0-10.0) H 09/16/16 05:35 RBC 3.03 M/mm3 (3.60-5.2) L 09/16/16 05:35 Hgb 9.8 GM/dL (10.7-15.3) L 09/16/16 05:35 Hct 29.3 % (32.4-45.2) L 09/16/16 05:35 MCV 96.8 fl (80-96) H 09/16/16 05:35 MCHC 33.2 g/dl (32.0-36.0) 09/16/16 05:35 RDW 15.3 % (11.6-15.6) 09/16/16 05:35 Plt Count 131 K/MM3 (134-434) L 09/16/16 05:35 MPV 9.6 fl (7.5-11.1) 09/16/16 05:35 CMP Sodium 139 mmol/L (136-145) 09/16/16 05:35 Potassium 3.2 mmol/L (3.5-5.1) L 09/16/16 05:35 Chloride 102 mmol/L (98-107) 09/16/16 05:35 Carbon Dioxide 26 mmol/L (21-32) 09/16/16 05:35 Anion Gap 11 (8-16) 09/16/16 05:35 BUN 6 mg/dL (7-18) L 09/16/16 05:35 Creatinine 0.5 mg/dL (0.55-1.02) L 09/16/16 05:35 Creat Clearance w eGFR > 60 (>60) 09/16/16 05:35 Random Glucose 82 mg/dL (74-106) 09/16/16 05:35 Calcium 8.1 mg/dL (8.5-10.1) L 09/16/16 05:35 Total Bilirubin 0.7 mg/dL (0.2-1.0) 09/16/16 05:35 AST 20 U/L (15-37) 09/16/16 05:35 ALT 33 U/L (12-78) 09/16/16 05:35 Alkaline Phosphatase 117 U/L (45-117) 09/16/16 05:35 Total Protein 6.2 g/dl (6.4-8.2) L 09/16/16 05:35 Albumin 2.6 g/dl (3.4-5.0) L 09/16/16 05:35 CARDIAC ENZYMES Creatine Kinase 30 IU/L (26-140) 09/09/16 12:54 Troponin I 0.04 ng/ml (0.03-0.50) 09/15/16 14:50 Microbiology 09/10/16 10:00 Blood - Peripheral Venous Blood Parasites Smear (CARLA) - Final 09/09/16 12:39 Blood - Peripheral Venous Blood Culture - Final NO GROWTH AFTER 5 DAYS INCUBATION 09/09/16 12:39 Blood - Peripheral Venous Blood Culture - Final NO GROWTH AFTER 5 DAYS INCUBATION 09/13/16 14:00 Urine - Urine Clean Catch Legionella Antigen - Final 09/13/16 14:00 Urine - Urine Clean Catch Streptococcus pneumoniae Antigen ( M - Final 09/09/16 22:15 Urine - Urine Clean Catch Urine Culture - Final NO GROWTH OBTAINED 09/10/16 22:40 Stool Clostridium difficile Antigen (CARLA) - Final 09/10/16 22:40 Stool Clostridium difficile Toxin Assay - Final 09/09/16 12:54 Urine - Urine Clean Catch Urine Culture - Final Contaminated: Please Repeat Assessment: This is a 61 year old female with PMHx of ulcerative colitis and hemolytic anemia who presented to the ED with 1-2 days of fever and vomiting. Plan: 1) ID: Neutropenic fever - Possible adverse drug reaction (sulfa) - Completed course of Cefepime - Continue Levaquin - Hx of ulcerative colitis - S/p Granix - WBC improving - Appreciate ID consult 2) Pulmonary: Acute pulmonary embolism - Continue heparin gtt, monitor Hgb for drop as patient has history of hemolytic anemia - Discussed with Dr. Turner who recommends Xarelto or Eliquis for discharge - ECHO reviewed, no evidence of RV strain - Hemodynamically stable - Stool for occult blood negative Pleural effusions - Developed after receiving IV fluids - Started on Lasix on 09/15 - F/u chest X-ray in AM HTN - Continue to trend 3) Heme: Autoimmune hemolytic anemia - Stable - Appreciate hematology consult 4) F/E/N: - Regular diet - Monitor electrolytes - Hypokalemia: replete 5) Prophylaxis: - OOB ambulating - On heparin gtt 6) Dispo: - Requires continued inpatient care CODE STATUS: FULL CODE Visit type - Emergency Visit Emergency Visit: Yes ED Registration Date: 09/09/16 Care time: The patient presented to the Emergency Department on the above date and was hospitalized for further evaluation of their emergent condition. - New Patient This patient is new to me today: Yes Date on this admission: 09/16/16 - Critical Care Critical Care patient: No
--- NOTE | 2016-09-16 17:04 | PN ---
Progress Note (short form) - Note Progress Note: seen approx 11A events noted. Pt transferred to [facility] in setting of acute PE evidenced on w/u of acute aranda. Currently receiving IV heparin and she notes she feels much better tho' she hasn't tried ambulation yet. Hypoxia recorded yest, but sat 98% today on RA. Notes LEE which she attrib to all recent events of transfer PE NAD non-tachypneic and fully conversant lungs - dec BS L base CVS-reg S1S2 abd-soft ext-no swelling neuro - fully a+o and grossly NF Imp - acute PE in setting of hospitalization for neutropenic pna; h/o AIHA neutropenia - resolved, neupogen d/c'd. Developed abnl cbc while recently starting sulfasalazine for UC complete abx course per ID PE - thus far mer hep gtt and plan is to monitor counts, BMs. would obtain LE duplex. Anticip transition to a noac. advised that she can have dose of tylenol for LEE; if no relief, would have low threshold to obtain head CT. As of time of this writing , I have d/w w PABLO Nava who eval'd pt and Ms. Aragon had no complaints at that later time. She will re-eval pt now.
[2016-09-16] MEDS: HYDROCORTISONE 2.5% TOPICAL CREAM 30 GM TUBE PR SCH (17:05)
--- NOTE | 2016-09-16 18:22 | EKG ---
Test Reason : Blood Pressure : / mmHG Vent. Rate : 065 BPM Atrial Rate : 065 BPM P-R Int : 122 ms QRS Dur : 090 ms QT Int : 430 ms P-R-T Axes : 024 042 049 degrees QTc Int : 447 ms NORMAL SINUS RHYTHM T WAVE ABNORMALITY, CONSIDER ANTERIOR ISCHEMIA WHEN COMPARED WITH ECG OF 09-SEP-2016 15:04, VENT. RATE HAS DECREASED BY 32 BPM T WAVE INVERSION NOW EVIDENT IN ANTERIOR LEADS Confirmed by MD MITZY, NADIRA ([id number]) on 09/16/2016 6:21:43 PM Referred By: RAMAKRISHNA ABDALLA Confirmed By:NADIRA FORRESTER MD
[2016-09-16 18:57] LABS: INR 1.41 (0.82-1.09); PROTHROMBIN TIME (PATIENT) 15.6 SEC (9.98-11.88)
[2016-09-16 19:00] LABS: ACTIVATED PTT 49.2 SECONDS (26.9-34.4)
[2016-09-17] MEDS: NYSTATIN 500,000 UNITS/5 ML SUSPENSION PO SCH ×3 (05:50→17:35)
--- NOTE | 2016-09-17 06:09 | HOSP ---
Subjective - Review of Symptoms Events since last encounter: Hospitalist Encounter Nurse informed me at the station that the patient reports having chest pressure. Arrived to bedside, patient is awake, alert and orientedx3. Patient states in a tearful manner" I could not get any sleep with all the noise from other patient's shouting and screaming" Patient reports having chest pressure to midsternal non-radiating x 1 hour. Ordered stat EKG, Trop I EKG reviewed, no change compared to last study Trop I to be drawn by lab Will have Day Team f/u on Trop I Cardiovascular: Yes: Chest Pain Physical Examination Vital Signs: Vital Signs Temperature 98.5 F 09/17/16 02:00 Pulse Rate 67 09/17/16 06:00 Respiratory Rate 16 09/17/16 06:00 Blood Pressure 181/88 09/17/16 06:00 O2 Sat by Pulse Oximetry (%) 98 09/16/16 21:00 Constitutional: Yes: Anxious, Mild Distress Cardiovascular: Yes: WNL, Regular Rate and Rhythm, S1, S2 Respiratory: Yes: WNL, Regular, CTA Bilaterally Neurological: Yes: WNL, Alert, Oriented Psychiatric: Yes: WNL, Alert, Oriented Labs: CBC, BMP 09/16/16 05:35 09/16/16 05:35 Current Medications Generic Name Dose Route Start Last Admin Trade Name Raul PRN Reason Stop Dose Admin Acetaminophen 650 mg 09/09/16 17:10 09/16/16 22:00 Tylenol - PO 650 mg Q4H PRN Administration FEVER Furosemide 40 mg 09/15/16 18:30 09/16/16 09:36 Lasix Injection - IVPUSH 40 mg DAILY [facility] Administration Heparin Sodium (Porcine) 1,000 unit 09/15/16 15:42 09/16/16 12:12 Heparin - IVPUSH 1,000 unit PRN PRN Administration Heparin Heparin Sodium (Porcine) 5,000 unit 09/15/16 15:42 09/15/16 16:00 Heparin - IVPUSH 5,000 unit PRN PRN Administration Heparin Hydrocortisone 1 applic 09/10/16 10:00 09/16/16 17:05 Anusol 2.5% Hc Cream - [place] 1 applic DAILY [facility] Administration Heparin Sodium/Dextrose 500 mls @ 20 mls/hr 09/15/16 15:45 09/16/16 20:54 Heparin Infusion - IVPB 1,200 units/hr TITR [facility] Titration Protocol 1,000 UNITS/HR Lactobacillus Acidophilus 1 tab 09/10/16 10:00 09/16/16 09:35 Bacid - PO 1 tab DAILY [facility] Administration Levofloxacin 500 mg 09/13/16 18:30 09/16/16 09:35 Levaquin - PO 500 mg DAILY [facility] Administration Loperamide HCl 2 mg 09/10/16 21:58 Imodium - PO Q8H PRN DIARRHEA Nystatin 500,000 units 09/11/16 18:00 09/17/16 05:50 Nystatin Oral Suspension - PO Not Given Q6HPO [facility] Ondansetron HCl 4 mg 09/09/16 17:07 Zofran Injection IVPUSH Q4H PRN NAUSEA Ranitidine HCl 150 mg 09/10/16 10:00 09/16/16 21:11 Zantac - PO 150 mg BID [facility] Administration Intake & Output 09/14/16 09/15/16 09/16/16 09/17/16 23:59 23:59 23:59 23:59 Intake Total 400 900 440 240 Output Total 400 Balance 400 900 40 240 Weight 69.201 kg 69.201 kg 69.853 kg
[2016-09-17] MEDS: ACETAMINOPHEN 325 MG TABLET (FP) PO PRN (06:18)
[2016-09-17] MEDS: HEPARIN INFUSION - 500 ML IVPB SCH ×2 (06:52→10:00)
[2016-09-17 08:04] LABS: MCH 32.2 pg (25.7-33.7); MCHC 33.7 g/dl (32.0-36.0); MEAN CELL VOLUME 95.4 fl (80-96); MEAN PLT VOLUME 9.1 fl (7.5-11.1); PLATELET COUNT 142 K/MM3 (134-434); WHITE BLOOD COUNT 16.9 K/mm3 (4.0-10.0)
[2016-09-17 09:42] LABS: ALBUMIN 2.8 g/dl (3.4-5.0); ANION GAP 12 (8-16); BILIRUBIN,TOTAL 0.7 mg/dL (0.2-1.0); C-REACTIVE PROTEIN 1.9 MG/DL (0.00-0.3); CALCIUM 8.2 mg/dL (8.5-10.1); CO2 25 mmol/L (21-32); CREATININE 0.5 mg/dL (0.55-1.02); GLUCOSE,RANDOM 104 mg/dL (74-106); SGOT/AST 21 U/L (15-37); SGPT/ALT 30 U/L (12-78); TOT PROT 6.5 g/dl (6.4-8.2)
[2016-09-17 09:45] LABS: ALK PHOS 136 U/L (45-117); TROPONIN I < 0.02 ng/ml (0.00-0.05)
--- NOTE | 2016-09-17 10:08 | PN ---
Progress Note, Physician History of Present Illness: Awake, alert No complaints No dyspnea/ cough/ chest pain No fever/ chills - Current Medication List Current Medications: Active Medications Acetaminophen (Tylenol -) 650 mg PO Q4H PRN PRN Reason: FEVER Last Admin: 09/17/16 06:18 Dose: 650 mg Furosemide (Lasix Injection -) 40 mg IVPUSH DAILY [facility] Last Admin: 09/16/16 09:36 Dose: 40 mg Heparin Sodium (Porcine) (Heparin -) 1,000 unit IVPUSH PRN PRN PRN Reason: Heparin Last Admin: 09/16/16 12:12 Dose: 1,000 unit Heparin Sodium (Porcine) (Heparin -) 5,000 unit IVPUSH PRN PRN PRN Reason: Heparin Last Admin: 09/15/16 16:00 Dose: 5,000 unit Hydrocortisone (Anusol 2.5% Hc Cream -) 1 applic [place] DAILY [facility] Last Admin: 09/16/16 17:05 Dose: 1 applic Heparin Sodium/Dextrose (Heparin Infusion -) 500 mls @ 20 mls/hr IVPB TITR [place] ; 1,000 UNITS/HR PRN Reason: Protocol Last Admin: 09/17/16 06:52 Dose: 24 mls/hr Lactobacillus Acidophilus (Bacid -) 1 tab PO DAILY [facility] Last Admin: 09/16/16 09:35 Dose: 1 tab Levofloxacin (Levaquin -) 500 mg PO DAILY [facility] Last Admin: 09/16/16 09:35 Dose: 500 mg Loperamide HCl (Imodium -) 2 mg PO Q8H PRN PRN Reason: DIARRHEA Nystatin (Nystatin Oral Suspension -) 500,000 units PO Q6HPO [facility] Last Admin: 09/17/16 05:50 Dose: Not Given Ondansetron HCl (Zofran Injection) 4 mg IVPUSH Q4H PRN PRN Reason: NAUSEA Ranitidine HCl (Zantac -) 150 mg PO BID [facility] Last Admin: 09/16/16 21:11 Dose: 150 mg - Objective Vital Signs: Vital Signs Temperature 98 F 09/17/16 08:57 Pulse Rate 90 09/17/16 08:57 Respiratory Rate 20 09/17/16 09:00 Blood Pressure 147/80 09/17/16 08:57 O2 Sat by Pulse Oximetry (%) 98 09/17/16 09:00 Constitutional: Yes: No Distress Eyes: Yes: Conjunctiva Clear Cardiovascular: Yes: Regular Rate and Rhythm, S1, S2 Respiratory: Yes: CTA Bilaterally Gastrointestinal: Yes: Normal Bowel Sounds, Soft. No: Tenderness Edema: No Labs: CBC, BMP 09/17/16 05:35 09/17/16 05:35 INR, PTT INR 1.41 (0.82-1.09) H 09/16/16 17:10 Assessment/Plan Febrile neutropenia resolved Probable adverse drug reaction (sulfa) Ulcerative colitis PE D/C anibiotics, observe off
[2016-09-17] MEDS ORDERED: POTASSIUM CHLORIDE TABS 20 MEQ TABLET.ER (FP) PO ONE ×2 (10:30→20:37)
[2016-09-17] MEDS: HYDROCORTISONE 2.5% TOPICAL CREAM 30 GM TUBE PR SCH (11:00)
--- NOTE | 2016-09-17 11:43 | PN ---
Progress Note (short form) - Note Progress Note: Chief Complaint: PE History of Present Illness: no cp, sob, palpitaitons, syncope Current Medications Acetaminophen (Tylenol -) 650 mg PO Q4H PRN PRN Reason: FEVER Last Admin: 09/17/16 06:18 Dose: 650 mg Furosemide (Lasix Injection -) 40 mg IVPUSH DAILY [facility] Last Admin: 09/16/16 09:36 Dose: 40 mg Heparin Sodium (Porcine) (Heparin -) 1,000 unit IVPUSH PRN PRN PRN Reason: Heparin Last Admin: 09/16/16 12:12 Dose: 1,000 unit Heparin Sodium (Porcine) (Heparin -) 5,000 unit IVPUSH PRN PRN PRN Reason: Heparin Last Admin: 09/15/16 16:00 Dose: 5,000 unit Hydrocortisone (Anusol 2.5% Hc Cream -) 1 applic [place] DAILY [facility] Last Admin: 09/16/16 17:05 Dose: 1 applic Heparin Sodium/Dextrose (Heparin Infusion -) 500 mls @ 20 mls/hr IVPB TITR [facility] ; 1,000 UNITS/HR PRN Reason: Protocol Last Admin: 09/17/16 06:52 Dose: 24 mls/hr Lactobacillus Acidophilus (Bacid -) 1 tab PO DAILY [facility] Last Admin: 09/16/16 09:35 Dose: 1 tab Loperamide HCl (Imodium -) 2 mg PO Q8H PRN PRN Reason: DIARRHEA Nystatin (Nystatin Oral Suspension -) 500,000 units PO Q6HPO [facility] Last Admin: 09/17/16 05:50 Dose: Not Given Ondansetron HCl (Zofran Injection) 4 mg IVPUSH Q4H PRN PRN Reason: NAUSEA Ranitidine HCl (Zantac -) 150 mg PO BID [facility] Last Admin: 09/16/16 21:11 Dose: 150 mg Vital Signs - 24 hr 09/16/16 09/16/16 09/16/16 14:06 18:00 21:00 Temperature 99 F 98.6 F Pulse Rate 69 65 Respiratory 20 18 18 Rate Blood Pressure 147/84 140/75 O2 Sat by Pulse 98 Oximetry (%) 09/16/16 09/17/16 09/17/16 22:00 02:00 06:00 Temperature 97.9 F 98.5 F Pulse Rate 75 61 67 Respiratory 161 H 18 16 Rate Blood Pressure 150/95 172/85 173/80 O2 Sat by Pulse Oximetry (%) 09/17/16 09/17/16 08:57 09:00 Temperature 98 F Pulse Rate 90 Respiratory 20 20 Rate Blood Pressure 147/80 O2 Sat by Pulse 98 Oximetry (%) Intake & Output 09/15/16 09/16/16 09/17/16 09/18/16 07:59 07:59 07:59 07:59 Intake Total 400 1340 240 Output Total 400 Balance 400 940 240 Weight 152 lb 9 oz 154 lb Constitutional: Yes: Well Nourished, No Distress, Calm Cardiovascular: Yes: Regular Rate and Rhythm, S1, S2. No: Gallop, Murmur Respiratory: Yes: Regular, bibasilar crackles . No: Accessory Muscle Use, Rales , Wheezes Extremities: No: Cold Edema: No Neurological: Yes: Alert, Oriented Psychiatric: No: Agitated Labs: CBC, BMP 09/17/16 05:35 09/17/16 05:35 Laboratory Tests 09/17/16 09/17/16 05:35 05:35 PTT (Actin FS) 60.3 H Total Bilirubin 0.7 AST 21 ALT 30 Alkaline Phosphatase 136 H Troponin I < 0.02 C-Reactive Protein 1.9 H D Total Protein 6.5 Albumin 2.8 L - ....Imaging EKG: Other (prior tele: NSR, no events) Assessment/Plan EKG: SR, new anterior twi. CT: PE in brances of MARIA ISABEL. Mod B ple effusion with bibasilar atelectasis (not present on review of 09/[address] which included images of lungs). prominent mediastinal/hilar nodes. mild splenomegaly. echo 09/16: nl lv/rv/valves. 1+ danny 61 yo with h/o ulcerative colitis and hemolytic anemia fever, vomiting, sob and noted to be neutropenic. Hospital course complicated by CP and new diagnosis of PE/pleural effusions. PE - peripheral. Hemodynamically stable. Will get echo to assess RV function. - AC with heparin drip. - Patient with anemia and neutropenia (PLTs stable)--monitor trend in H/H - can switch to xarelto or eliquis at discretion of heme. - Dr. Mcwilliams d/w'd heme: likely provoked (occurred during hosp stay) - echo with nl RV fn. pleural effusions - were not present on 09/[address] --> developed since then after receiving IVF. + proteinuria and low albumin. Sodium trended down while on IVF. - iv lasix started 09/15. repeat cxr today no improvement by report, but improved per my review. Patient's weight down, hyponatremia resolved and no longer sob --> will stop lasix. (would get pre and post o2 sat to confirm). close monitoring of weights as outpatient and close follow up with cardiology. htn - has developed while here, sbp 140s--observe trend. prior h/o proteinuria. would start low dose lisinopril. neutropenia/anemia - improved on neupogen. thought to be possibly 2/2 UC meds. Also + for parvovirus--per heme hypokalemia - lyte repletion prn
[2016-09-17 12:06] LABS: METAMYELOCYTE 1 % (0-2); PLATELET ESTIMATE ADEQUATE (NORMAL)
[2016-09-17] MEDS: FUROSEMIDE 40 MG/4 ML INJECTABLE VIAL IVPUSH SCH (12:26)
[2016-09-17] MEDS: LACTOBACILLUS ACIDOPHILUS 1 EACH TAB (FP) PO SCH (12:27)
[2016-09-17] MEDS: RANITIDINE HCL 150 MG TABLET (FP) PO SCH ×2 (12:28→21:26)
--- NOTE | 2016-09-17 12:41 | PN ---
Progress Note (short form) - Note Progress Note: Subjective: The patient was seen and examined at the bedside, she denies any chest pain or shortness of breath. Headache overnight, head CT with no evidence of intracranial hemorrhage Current Medications Generic Name Dose Route Start Last Admin Trade Name Freq PRN Reason Stop Dose Admin Acetaminophen 650 mg 09/09/16 17:10 09/17/16 06:18 Tylenol - PO 650 mg Q4H PRN Administration FEVER Furosemide 40 mg 09/15/16 18:30 09/17/16 12:26 Lasix Injection - IVPUSH 40 mg DAILY [facility] Administration Heparin Sodium (Porcine) 1,000 unit 09/15/16 15:42 09/16/16 12:12 Heparin - IVPUSH 1,000 unit PRN PRN Administration Heparin Heparin Sodium (Porcine) 5,000 unit 09/15/16 15:42 09/15/16 16:00 Heparin - IVPUSH 5,000 unit PRN PRN Administration Heparin Hydrocortisone 1 applic 09/10/16 10:00 09/16/16 17:05 Anusol 2.5% Hc Cream - CT 1 applic DAILY [facility] Administration Heparin Sodium/Dextrose 500 mls @ 20 mls/hr 09/15/16 15:45 09/17/16 06:52 Heparin Infusion - IVPB 24 mls/hr TITR [facility] Administration Protocol 1,000 UNITS/HR Lactobacillus Acidophilus 1 tab 09/10/16 10:00 09/17/16 12:27 Bacid - PO 1 tab DAILY [facility] Administration Loperamide HCl 2 mg 09/10/16 21:58 Imodium - PO Q8H PRN DIARRHEA Nystatin 500,000 units 09/11/16 18:00 09/17/16 12:28 Nystatin Oral Suspension - PO 500,000 units Q6HPO [place] Administration Ondansetron HCl 4 mg 09/09/16 17:07 Zofran Injection IVPUSH Q4H PRN NAUSEA Ranitidine HCl 150 mg 09/10/16 10:00 09/17/16 12:28 Zantac - PO 150 mg BID [place] Administration Objective: Vital Signs Period Temp Pulse Resp BP Sys/Pizarro Pulse Ox Last 24 Hr 97.9 F-99 F 61-90 16-161 140-181/75-95 98-98 Physical Exam: General: NAD, A&Ox3 Lungs: CTA bilaterally Heart: RRR, S1S2 Abd: Soft, non-tender, non-distended Ext: Warm, well-perfused. 2+ DP/PT bilaterally Neuro: CN 2-12 intact. Muscle strength 5/5 equal and bilateral CBCD WBC 16.9 K/mm3 (4.0-10.0) H 09/17/16 05:35 RBC 3.02 M/mm3 (3.60-5.2) L 09/17/16 05:35 Hgb 9.7 GM/dL (10.7-15.3) L 09/17/16 05:35 Hct 28.8 % (32.4-45.2) L 09/17/16 05:35 MCV 95.4 fl (80-96) 09/17/16 05:35 MCHC 33.7 g/dl (32.0-36.0) 09/17/16 05:35 RDW 15.0 % (11.6-15.6) 09/17/16 05:35 Plt Count 142 K/MM3 (134-434) 09/17/16 05:35 MPV 9.1 fl (7.5-11.1) 09/17/16 05:35 CMP Sodium 139 mmol/L (136-145) 09/17/16 05:35 Potassium 3.0 mmol/L (3.5-5.1) L 09/17/16 05:35 Chloride 102 mmol/L (98-107) 09/17/16 05:35 Carbon Dioxide 25 mmol/L (21-32) 09/17/16 05:35 Anion Gap 12 (8-16) 09/17/16 05:35 BUN 5 mg/dL (7-18) L 09/17/16 05:35 Creatinine 0.5 mg/dL (0.55-1.02) L 09/17/16 05:35 Creat Clearance w eGFR > 60 (>60) 09/17/16 05:35 Random Glucose 104 mg/dL (74-106) D 09/17/16 05:35 Calcium 8.2 mg/dL (8.5-10.1) L 09/17/16 05:35 Total Bilirubin 0.7 mg/dL (0.2-1.0) 09/17/16 05:35 AST 21 U/L (15-37) 09/17/16 05:35 ALT 30 U/L (12-78) 09/17/16 05:35 Alkaline Phosphatase 136 U/L (45-117) H 09/17/16 05:35 Total Protein 6.5 g/dl (6.4-8.2) 09/17/16 05:35 Albumin 2.8 g/dl (3.4-5.0) L 09/17/16 05:35 CARDIAC ENZYMES Creatine Kinase 30 IU/L (26-140) 09/09/16 12:54 Troponin I < 0.02 ng/ml (0.00-0.05) 09/17/16 05:35 Microbiology 09/10/16 10:00 Blood - Peripheral Venous Blood Parasites Smear (CARLA) - Final 09/09/16 12:39 Blood - Peripheral Venous Blood Culture - Final NO GROWTH AFTER 5 DAYS INCUBATION 09/09/16 12:39 Blood - Peripheral Venous Blood Culture - Final NO GROWTH AFTER 5 DAYS INCUBATION 09/13/16 14:00 Urine - Urine Clean Catch Legionella Antigen - Final 09/13/16 14:00 Urine - Urine Clean Catch Streptococcus pneumoniae Antigen ( M - Final 09/09/16 22:15 Urine - Urine Clean Catch Urine Culture - Final NO GROWTH OBTAINED 09/10/16 22:40 Stool Clostridium difficile Antigen (CARLA) - Final 09/10/16 22:40 Stool Clostridium difficile Toxin Assay - Final 09/09/16 12:54 Urine - Urine Clean Catch Urine Culture - Final Contaminated: Please Repeat Assessment: This is a 61 year old female with PMHx of ulcerative colitis and hemolytic anemia who presented to the ED with 1-2 days of fever and vomiting. Plan: 1) ID: Neutropenic fever - Possible adverse drug reaction (sulfa) - Completed course of Cefepime - Discontinued Levaquin (09/17) - Hx of ulcerative colitis - S/p Granix - WBC improving - Appreciate ID consult 2) Pulmonary: Acute pulmonary embolism - Continue heparin gtt, Hgb has remained stable - Discussed with Dr. Turner who recommends Xarelto or Eliquis for discharge - ECHO reviewed, no evidence of RV strain - Hemodynamically stable - Stool for occult blood negative - Awaiting final decision re: anticoagulation from hematology for discharge Pleural effusions - Developed after receiving IV fluids - Started on Lasix on 09/15 - Chest X-ray with increased congestive changes HTN - Continue to trend 3) Heme: Autoimmune hemolytic anemia - Stable - Appreciate hematology consult 4) Neuro: Headache - Per hematology, head CT ordered and negative for intracranial hemorrhage 5) F/E/N: - Regular diet - Monitor electrolytes - Hypokalemia: replete 6) Prophylaxis: - OOB ambulating - On heparin gtt 7) Dispo: - Requires continued inpatient care CODE STATUS: FULL CODE Visit type - Emergency Visit Emergency Visit: Yes ED Registration Date: 09/09/16 Care time: The patient presented to the Emergency Department on the above date and was hospitalized for further evaluation of their emergent condition. - New Patient This patient is new to me today: No - Critical Care Critical Care patient: No
--- NOTE | 2016-09-17 13:22 | EKG ---
Test Reason : Blood Pressure : / mmHG Vent. Rate : 067 BPM Atrial Rate : 067 BPM P-R Int : 132 ms QRS Dur : 088 ms QT Int : 436 ms P-R-T Axes : 042 045 056 degrees QTc Int : 460 ms NORMAL SINUS RHYTHM T WAVE ABNORMALITY, CONSIDER ANTERIOR ISCHEMIA ABNORMAL ECG WHEN COMPARED WITH ECG OF 15-SEP-2016 10:59, NO SIGNIFICANT CHANGE WAS FOUND Confirmed by CL MARINO MD ([id number]) on 09/17/2016 1:22:05 PM Referred By: Confirmed By:CL MARINO MD
[2016-09-17] MEDS: LISINOPRIL 5 MG TABLET (FP) PO SCH (17:35)
[2016-09-17 18:15] LABS: URINE APPEARANCE CLEAR; URINE BILIRUBIN NEGATIVE (NEGATIVE); URINE BLOOD NEGATIVE (NEGATIVE); URINE COLOR STRAW; URINE GLUCOSE (UA) NEGATIVE (NEGATIVE); URINE KETONE NEGATIVE (NEGATIVE); URINE LEUK ESTERASE NEGATIVE (NEGATIVE); URINE NITRITE NEGATIVE (NEGATIVE); URINE PROTEIN NEGATIVE (NEGATIVE); URINE UROBILINOGEN NEGATIVE E.U./dl (0.2-1.0)
[2016-09-17 19:58] LABS: ANION GAP 8 (8-16); CALCIUM 8.8 mg/dL (8.5-10.1); CO2 29 mmol/L (21-32); CREATININE 0.7 mg/dL (0.55-1.02); GLUCOSE,RANDOM 130 mg/dL (74-106)
[2016-09-18] MEDS: NYSTATIN 500,000 UNITS/5 ML SUSPENSION PO SCH ×2 (00:10→06:25)
[2016-09-18] MEDS: HEPARIN INFUSION - 500 ML IVPB SCH ×2 (01:20→10:30)
--- NOTE | 2016-09-18 08:05 | DS ---
Physical Exam: SUBJECTIVE: Patient seen and examined at bedside. Offers no complaints at this time. Requesting discharge. OBJECTIVE: Vital Signs 3 Period Temp Pulse Resp BP Sys/Pizarro Pulse Ox Last 24 Hr 98 F-98.9 F 62-90 18-20 138-167/68-98 96-98 PHYSICAL EXAM GENERAL: The patient is awake, alert, and fully oriented, in no acute distress. HEAD: Normal with no signs of trauma. EYES: PERRL, extraocular movements intact, sclera anicteric, conjunctiva clear. ENT: Ears normal, nares patent, oropharynx clear without exudates, moist mucous membranes. NECK: Trachea midline, full range of motion, supple. LUNGS: Breath sounds equal, clear to auscultation bilaterally, no wheezes, no crackles, no accessory muscle use. HEART: Regular rate and rhythm, S1, S2 without murmur, rub or gallop. ABDOMEN: Soft, nontender, nondistended, normoactive bowel sounds, no guarding, no rebound, no hepatosplenomegaly, no masses. EXTREMITIES: 2+ pulses, warm, well-perfused, no edema. NEUROLOGICAL: Cranial nerves II through XII grossly intact. Normal speech, gait not observed. PSYCH: Normal mood, normal affect. SKIN: Warm, dry, normal turgor, no rashes or lesions noted. LABS Laboratory Results - last 24 hr 3 09/17/16 09/17/16 09/17/16 05:35 05:35 05:35 WBC 16.9 H RBC 3.02 L Hgb 9.7 L Hct 28.8 L MCV 95.4 MCH 32.2 MCHC 33.7 RDW 15.0 Plt Count 142 MPV 9.1 Neutrophils % 80.0 Lymphocytes % 16.0 D Monocytes % 3.0 L Metamyelocytes 1 Differential Comment Manual diff done Platelet Estimate Adequate PTT (Actin FS) 60.3 H Sodium 139 Potassium 3.0 L Chloride 102 Carbon Dioxide 25 Anion Gap 12 BUN 5 L Creatinine 0.5 L Creat Clearance w eGFR > 60 Random Glucose 104 D Calcium 8.2 L Total Bilirubin 0.7 AST 21 ALT 30 Alkaline Phosphatase 136 H Troponin I < 0.02 C-Reactive Protein 1.9 H D Total Protein 6.5 Albumin 2.8 L Urine Color Urine Appearance Urine pH Ur Specific [place] Urine Protein Urine Glucose (UA) Urine Ketones Urine Blood Urine Nitrite Urine Bilirubin Urine Urobilinogen Ur Leukocyte Esterase 3 09/17/16 09/17/16 17:15 18:00 WBC RBC Hgb Hct MCV MCH MCHC RDW Plt Count MPV Neutrophils % Lymphocytes % Monocytes % Metamyelocytes Differential Comment Platelet Estimate PTT (Actin FS) Sodium 139 Potassium 3.4 L Chloride 102 Carbon Dioxide 29 Anion Gap 8 BUN 6 L Creatinine 0.7 D Creat Clearance w eGFR Random Glucose 130 H D Calcium 8.8 Total Bilirubin AST ALT Alkaline Phosphatase Troponin I C-Reactive Protein Total Protein Albumin Urine Color Straw Urine Appearance Clear Urine pH 7.0 Ur Specific [place] 1.015 Urine Protein Negative Urine Glucose (UA) Negative Urine Ketones Negative Urine Blood Negative Urine Nitrite Negative Urine Bilirubin Negative Urine Urobilinogen Negative Ur Leukocyte Esterase Negative HOSPITAL COURSE: Date of Admission:09/09/16 Date of Discharge: 09/18/16 Minutes to complete discharge: 45 Discharge Summary Reason For Visit: NEUTROPENIC FEVER Current Active Problems Neutropenic fever (Acute) Sulfasalazine adverse reaction (Acute) Ulcerative colitis (Acute) Hospital Course: This is a 61 yo woman wit H ulcerative colitis and autoimmune hemolytic anemia who presented with fever and vomiting. She was found to be neutropenic and hyponatremic at that time. Medication review revealed probable adverse reaction to sulfasalazine which was discontinued. She was started on Cefepime, neupogen and NS. Delayed response to neupogen noted but WBC returned to normal on 09/15. Na+ did not normalize after IVF. Patient became SOB on 09/14 and was started on Levaquin after CXR showed possible infiltrates in left lower lobe. Patient became increasingly SOB and a CTA chest was performed revealing left upper branch PE and b/l pleural effusions. She was started on a heparin gtt and Lasix at that time. Echo showed no signs of right heart strain. Na+ normalized after Lasix. Patient was found to be hypertensive with a UA that revealed proteinuria with trace blood. Patient started on Lisinopril 5mg daily with good response. Repeat UA without proteinuria or hematuria. Patient transitioned to Eliquis on day of discharge. Condition: Stable - Instructions Diet, Activity, Other Instructions: You have been started on 2 medications during this visit: 1. Take apixaban (Eliquis) 10mg twice a day for 7 days. Then take 5mg twice a day until changed by Dr. Roberts. This is the anticoagulant for the pulmonary embolism. 2. Take lisinopril 5mg daily for your blood pressure. Make an appointment with Dr. Santos within 1 week. Make an appointment with Dr. Roberts within 1 week. Eat a well balanced diet that is low in sodium. Referrals: Pedrito Roberts MD [Staff Physician] - Ivan Santos MD [Staff Physician] - Disposition: HOME - Home Medications Comprehensive Discharge Medication List: Ambulatory Orders 3 Medication Instructions Recorded Acetaminophen [Tylenol .Regular 650 mg PO Q4H PRN #0 tablet 09/17/16 Strength -] Lactobacillus Acidophilus [Bacid -] 1 tab PO DAILY #30 tab 09/17/16 Ranitidine [Zantac -] 150 mg PO BID tablet 09/17/16 Apixaban [Eliquis -] 5 mg PO BID #46 tablet 09/18/16 Apixaban [Eliquis] 10 mg PO BID #26 tablet 09/18/16 Lisinopril 5 mg PO DAILY #30 tablet 09/18/16 Lisinopril [Prinivil] 5 mg PO DAILY tablet 09/18/16 This patient is new to me today: No Emergency Visit: Yes ED Registration Date: 09/09/16 Care time: The patient presented to the Emergency Department on the above date and was hospitalized for further evaluation of their emergent condition. Critical Care patient: No - Discharge Referral Referred to [facility] Med P.C.: No
[2016-09-18 08:30] LABS: MCH 32.4 pg (25.7-33.7); MCHC 33.7 g/dl (32.0-36.0); MEAN CELL VOLUME 96.2 fl (80-96); MEAN PLT VOLUME 9.1 fl (7.5-11.1); PLATELET COUNT 159 K/MM3 (134-434); RDW 15.5 % (11.6-15.6); WHITE BLOOD COUNT 15.7 K/mm3 (4.0-10.0)
[2016-09-18] MEDS: ACETAMINOPHEN 325 MG TABLET (FP) PO PRN (09:00)
[2016-09-18 09:34] VITALS: BP 142/86; PULSE 79; TEMP 98
[2016-09-18 09:36] LABS: ALK PHOS 135 U/L (45-117); ANION GAP 10 (8-16); BILIRUBIN,TOTAL 0.8 mg/dL (0.2-1.0); CO2 28 mmol/L (21-32); CREATININE 0.6 mg/dL (0.55-1.02); GLUCOSE,RANDOM 97 mg/dL (74-106); SGOT/AST 28 U/L (15-37); SGPT/ALT 35 U/L (12-78); TOT PROT 6.9 g/dl (6.4-8.2)
[2016-09-18] MEDS: LISINOPRIL 5 MG TABLET (FP) PO SCH (09:46)
[2016-09-18] MEDS: RANITIDINE HCL 150 MG TABLET (FP) PO SCH (09:46)
[2016-09-18] MEDS: LACTOBACILLUS ACIDOPHILUS 1 EACH TAB (FP) PO SCH (09:47)
--- NOTE | 2016-09-18 10:33 | PN ---
Progress Note (short form) - Note Progress Note: History of Present Illness: no cp, sob, palpitaitons, syncope Current Medications Generic Name Dose Route Start Last Admin Trade Name Freq PRN Reason Stop Dose Admin Acetaminophen 650 mg 09/09/16 17:10 09/18/16 09:00 Tylenol - PO 650 mg Q4H PRN Administration FEVER Heparin Sodium (Porcine) 1,000 unit 09/15/16 15:42 09/16/16 12:12 Heparin - IVPUSH 1,000 unit PRN PRN Administration Heparin Heparin Sodium (Porcine) 5,000 unit 09/15/16 15:42 09/15/16 16:00 Heparin - IVPUSH 5,000 unit PRN PRN Administration Heparin Hydrocortisone 1 applic 09/10/16 10:00 09/17/16 11:00 Anusol 2.5% Hc Cream - [place] 1 applic DAILY [place] Administration Heparin Sodium/Dextrose 500 mls @ 20 mls/hr 09/15/16 15:45 09/18/16 01:20 Heparin Infusion - IVPB 24 mls/hr TITR [facility] Administration Protocol 1,000 UNITS/HR Lactobacillus Acidophilus 1 tab 09/10/16 10:00 09/18/16 09:47 Bacid - PO 1 tab DAILY [facility] Administration Lisinopril 5 mg 09/17/16 15:45 09/18/16 09:46 Prinivil PO 5 mg DAILY [facility] Administration Loperamide HCl 2 mg 09/10/16 21:58 Imodium - PO Q8H PRN DIARRHEA Nystatin 500,000 units 09/11/16 18:00 09/18/16 06:25 Nystatin Oral Suspension - PO 500,000 units Q6HPO [facility] Administration Ondansetron HCl 4 mg 09/09/16 17:07 Zofran Injection IVPUSH Q4H PRN NAUSEA Ranitidine HCl 150 mg 09/10/16 10:00 09/18/16 09:46 Zantac - PO 150 mg BID [facility] Administration Vital Signs Period Temp Pulse Resp BP Sys/Pizarro Pulse Ox Last 24 Hr 98 F-98.9 F 62-79 18-20 138-167/68-98 96-96 Constitutional: Yes: Well Nourished, No Distress, Calm Cardiovascular: Yes: Regular Rate and Rhythm, S1, S2. No: Gallop, Murmur Respiratory: Yes: Regular, cta bl nl eff. No: Accessory Muscle Use, Rales, Wheezes Extremities: No: Cold Edema: No Neurological: Yes: Alert, Oriented Psychiatric: No: Agitated no jaundice diaphoresis Labs: CBC, BMP 09/18/16 05:48 09/18/16 05:48 EKG: SR, new anterior twi. CT: PE in brances of MARIA ISABEL. Mod B ple effusion with bibasilar atelectasis (not present on review of 09/[address] which included images of lungs). prominent mediastinal/hilar nodes. mild splenomegaly. echo 09/16: nl lv/rv/valves. 1+ danny Assessment/Plan 61 yo with h/o ulcerative colitis and hemolytic anemia fever, vomiting, sob and noted to be neutropenic. Hospital course complicated by CP and new diagnosis of PE/pleural effusions. PE - peripheral. Hemodynamically stable. echo with nl RV fn. - cont ac with noac - Dr. Mcwilliams d/w'd heme: likely provoked (occurred during hosp stay) htn - has developed while here, sbp 140s, started low dose lisinopril. Outpt f/u for bp monitoring neutropenia/anemia - improved on neupogen. thought to be possibly 2/2 UC meds. Also + for parvovirus--per heme cardiac dempsey stable for dc
[2016-09-18] MEDS ORDERED: APIXABAN 5 MG TABLET PO ONE (10:45)
[2016-09-18] MEDS: HYDROCORTISONE 2.5% TOPICAL CREAM 30 GM TUBE PR SCH (10:56)
[2016-09-18 12:34] LABS: METAMYELOCYTE 5 % (0-2); PLATELET ESTIMATE ADEQUATE (NORMAL)
== END 2016-09-18 12:12 | disposition home or self-care (01) | DRG 808 ==
LOC: FER 11:52 → FM/S 17:33 → J4W 09-15 15:50
PROVIDERS: ADMIT Internal Medicine; ATTEND Nurse Practitioner Family
PROC: 3E033GC Introduction of Other Therapeutic Substance into Peripheral Vein, Percutaneous Approach (ICD-10-PCS; principal; 2016-09-09)
DX: D70.9 Neutropenia, unspecified (principal); J18.9 Pneumonia, unspecified organism; I26.99 Other pulmonary embolism without acute cor pulmonale; E87.1 Hypo-osmolality and hyponatremia; J91.8 Pleural effusion in other conditions classified elsewhere; J98.11 Atelectasis; K51.90 Ulcerative colitis, unspecified, without complications; T37.0X5A Adverse effect of sulfonamides, initial encounter; R50.81 Fever presenting with conditions classified elsewhere; M35.9 Systemic involvement of connective tissue, unspecified; D63.8 Anemia in other chronic diseases classified elsewhere; R11.2 Nausea with vomiting, unspecified; R80.9 Proteinuria, unspecified; E87.6 Hypokalemia; R51 Headache; B97.6 Parvovirus as the cause of diseases classified elsewhere; I10 Essential (primary) hypertension
CPT/HCPCS: 36415; 70450-TC; 71010-TC; 71020-TC; 71275-TC; 74177-TC; 80048; 80053; 80076; 81003; 81015; 82248; 82272; 82550; 83520; 83605; 83615; 83735; 83930; 83935; 84100; 84436; 84443; 84484; 85025; 85027; 85044; 85379; 85610; 85730; 86038; 86140; 86256; 86747; 86850; 86900; 86901; 87040; 87086; 87207; 87324; 87449; 87899; 93005; 93010; 93306-TC; 99283-25; J1442; J1644